=== PATIENT | female | born 1935 | race Caucasian/White ===

== ENCOUNTER → 2016-04-19 | Outpatient (CLI) | payer OTHER ==
[~2016-04-19] MED LIST: AMLO-25 OR; LEVO100T83 OR; LEVOTHYROXINE; METFORMIN; METO-159 OR; ZANTAC
[2016-04-19 08:42] LABS: Basophils # (auto) 0 uL; Basophils % (auto) 0.2 % (0.0-2.0); Eosinophils # (auto) 0 uL; Eosinophils % (auto) 0.1 % (0.0-7.0); Hematocrit 36.5 % (36.0-46.0); Hemoglobin 11.7 g/dL (12.2-16.2); Lymphocytes # (auto) 1.5 uL; Lymphocytes % (auto) 11.6 % (10.0-50.0); Mean Corpuscular Hemoglobin 27.8 pg (28.0-32.0); Mean Corpuscular Hgb Conc. 32.2 g/dL (32.0-36.0); Mean Corpuscular Volume 86.6 fL (80.0-100.0); Mean Platelet Volume 8.7 fL (7.4-10.4); Monocytes # (auto) 0.7 uL; Neutrophils # (auto) 10.9 uL; Neutrophils % (auto) 83.1 % (37.0-80.0); Platelet Count (auto) 419 10^3/uL (140-450); Red Cell Distribution Width 13.3 % (11.6-16.0); White Blood Cell 13.1 10^3/uL (4.4-10.8)
[2016-04-19 09:04] LABS: Albumin 3.5 g/dL (3.4-5.0); BUN/Creatinine Ratio 34.5; Bilirubin, Total 0.4 mg/dL (0.2-1.0); Calcium 8.7 mg/dL (8.5-10.1); Potassium 4.5 mmol/L (3.5-5.1); Total Protein 7.4 g/dL (6.4-8.2)
[2016-04-19 09:42] LABS: Urine Bilirubin Negative (Negative); Urine Blood Negative /uL (Negative); Urine Color Yellow (Yellow); Urine Ketone Negative (Negative); Urine Nitrite Negative (Negative); Urine RBC 1 /hpf (0 - 4); Urine Squamous Epithelial Cell FEW /hpf (<5); Urine Urobilinogen Normal (Negative); Urine pH 5.5 (5.0-8.0)
[2016-04-19 09:51] LABS: Urine Glucose 3+ mg/dL (Normal)
== END | disposition home or self-care (01) ==
LOC: LAB 06:51
DX: N18.3 Chronic kidney disease, stage 3 (moderate) (principal); E11.21 Type 2 diabetes mellitus with diabetic nephropathy
CPT/HCPCS: 36415; 80053; 80061; 81001; 82043; 83036; 83970; 84443; 85025

== ENCOUNTER 2016-07-06 08:35 | Inpatient (IN) | payer OTHER ==
[~2016-07-06] VITALS: Ht 160 cm; Wt 88.5 kg
[2016-07-06] MEDS ORDERED: DILTIAZEM HCL 25 MG/5 ML VIAL IV ONE (09:00)
[2016-07-06] MEDS ORDERED: SODIUM CHLORIDE 0.9% 1,000 ML IV ONE ×4 (09:06→14:15)
[2016-07-06 09:13] LABS: Hematocrit 34.7 % (36.0-46.0); Hemoglobin 11.4 g/dL (12.2-16.2); Mean Corpuscular Hgb Conc. 32.9 g/dL (32.0-36.0); Mean Corpuscular Volume 88.2 fL (80.0-100.0); Mean Platelet Volume 9.7 fL (7.4-10.4); Platelet Count (auto) 426 10^3/uL (140-450); Red Cell Distribution Width 15.1 % (11.6-16.0); SUSPECT VIEW TRANSMISSION; White Blood Cell 24.7 10^3/uL (4.4-10.8)
[2016-07-06 09:24] LABS: Metamyelocytes % 0; Myelocytes % 0; Promyelocytes % 0; Reactive Lymphocytes 0
[2016-07-06] MEDS ORDERED: FUROSEMIDE 40 MG/4 ML VIAL IV ONE ×2 (09:30)
[2016-07-06 09:41] LABS: BUN/Creatinine Ratio 41.4; Bilirubin, Total 0.7 mg/dL (0.2-1.0); Calcium 9.6 mg/dL (8.5-10.1); Magnesium 3.8 mg/dL (1.6-2.6); Partial Thromboplastin Time 27.8 sec (22.64-33.71); Potassium 5.3 mmol/L (3.5-5.1); Prothrombin Time 10.8 sec (9.37-12.3); Total Protein 7.3 g/dL (6.4-8.2)
[2016-07-06] MEDS ORDERED: PIPERACILLIN-TAZOB 3.375GM 100 ML IV ONE (10:15)
[2016-07-06 10:49] LABS: Temperature: 23.3 C (20.0-25.0)
[2016-07-06 10:50] LABS: Albumin 1.6 g/dL (3.4-5.0)
[2016-07-06 10:54] LABS: Urine Bilirubin Negative (Negative); Urine Blood Negative /uL (Negative); Urine Color Yellow (Yellow); Urine Mucus FEW (None Seen); Urine Nitrite Negative (Negative); Urine RBC 1 /hpf (0 - 4); Urine Squamous Epithelial Cell FEW /hpf (<5); Urine Urobilinogen Normal (Negative)
[2016-07-06 10:55] LABS: Urine Glucose 4+ mg/dL (Normal); Urine Ketone 1+ (Negative)
[2016-07-06 11:17] LABS: REFLEX LACTIC ACID YES OR NO YES
[2016-07-06 11:25] LABS: Platelet Estimate Adequate
[2016-07-06] MEDS ORDERED: InsuLIN R (HUMAN) 100 UNITS in SODIUM CHL 0.9% 99 ML IV SCH (12:10)
[2016-07-06] MEDS ORDERED: DEXTROSE (50%) 50ML SYRG IV PRN (12:15)
[2016-07-06] MEDS ORDERED: AMIODARONE HCL 150 MG in D5W 5% 100 ML IV ONE (12:15)
[2016-07-06] MEDS ORDERED: InsuLIN REG 1unit/0.01ml Soln (100units/ml) IV ONE (12:15)
[2016-07-06] MEDS ORDERED: AMIODARONE HCL 900 MG in DEXTROSE 500 ML IV SCH ×3 (12:30→18:30)
[2016-07-06] MEDS ORDERED: LINEZOLID 600MG/300ML 300 ML IV ONE (13:00)
[2016-07-06] MEDS ORDERED: ALBUTEROL SULF 2.5 MG/0.5ML(0.5%) NEB SOLN NEB PRN (13:00)
[2016-07-06] MEDS ORDERED: LORazepam 0.5 MG TAB PO PRN (13:00)
[2016-07-06] MEDS ORDERED: SODIUM CHLORIDE 0.9% 250 ML IV ONE (13:00)
[2016-07-06] MEDS ORDERED: PROMETHAZINE HCL 25 MG/ML 1ML IV PRN (13:00)
[2016-07-06] MEDS ORDERED: TEMAZEPAM 15 MG CAP PO PRN (13:00)
[2016-07-06] MEDS ORDERED: NITROGLYCERIN 0.4 MG SL TAB SL PRN (13:00)
[2016-07-06] MEDS ORDERED: HYDROcodone-ACET 5/325MG TAB PO PRN (13:00)
[2016-07-06] MEDS ORDERED: MORPHINE SULF INJ 2 MG/ML SYRINGE 1ML IV PRN ×2 (13:00)
[2016-07-06] MEDS ORDERED: SODIUM CHLORIDE 0.9% 1,000 ML IV SCH (13:15)
[2016-07-06] MEDS: InsuLIN R (HUMAN) 100 UNITS in SODIUM CHL 0.9% 99 ML IV SCH (13:25)
[2016-07-06] MEDS ORDERED: MIDAZOLAM DRIP 100 mg/100mL NS 100 ML IV ONE (13:26)
[2016-07-06] MEDS ORDERED: MIDAZOLAM HCL 5 MG/ML-1ML VIAL IV ONE (13:30)
[2016-07-06] MEDS ORDERED: ENOXAPARIN SOD 30 MG/0.3 ML SYRINGE SC ONE (13:30)
[2016-07-06 13:32] LABS: Lactic Acid w/Reflex 4.7 mmol/L (0.4-2.0)
[2016-07-06 13:35] LABS: REFLEX LACTIC ACID YES OR NO NO
[2016-07-06] MEDS: ACCU-CHEK COMFORT CURVE STRIP VI SCH ×11 (13:42→23:16)
[2016-07-06] MEDS: MIDAZOLAM DRIP 100 mg/100mL NS 100 ML IV SCH ×3 (13:43→22:51)
[2016-07-06] MEDS: OSELTAMIVIR 75 MG CAP PO ONE ×2 (13:55→14:55)
[2016-07-06] MEDS: SODIUM CHLORIDE 0.9% 1,000 ML IV SCH ×2 (14:40→21:54)
[2016-07-06] MEDS ORDERED: AZITHROMYCIN 500MG/D5W 250ML 250 ML IV ONE (15:00)
[2016-07-06] MEDS: PROPOFOL 100 ML IV SCH ×5 (15:28→22:03)
[2016-07-06] MEDS ORDERED: PROPOFOL 10 MG/ML 20 ML IV ONE (15:30)
[2016-07-06] MEDS ORDERED: LORazepam 2MG/ML-1ML VIAL IV ONE (15:45)
[2016-07-06] MEDS: PIPERACILLIN-TAZOB 2.25GM 50 ML IV SCH ×2 (17:39→23:57)
[2016-07-06] MEDS ORDERED: NOREPINEPHRINE BITARTRATE 250 ML IV ONE (18:32)
[2016-07-06] MEDS: NOREPINEPHRINE BITARTRATE 250 ML IV SCH (18:50)
[2016-07-06] MEDS: ALBUTEROL SULF 2.5 MG/0.5ML(0.5%) NEB SOLN NEB SCH (18:58)
[2016-07-06 18:59] VITALS: BP 159/77
[2016-07-06] MEDS: IPRATROPIUM BROM 0.5 MG/2.5ML INH SOL NEB SCH (18:59)
[2016-07-06 20:12] VITALS: BP 129/69
[2016-07-06] MEDS: AMIODARONE HCL 900 MG in DEXTROSE 500 ML IV SCH (21:29)
[2016-07-06] MEDS: LINEZOLID 600MG/300ML 300 ML IV SCH (21:54)
[2016-07-06] MEDS ORDERED: OSELTAMIVIR 75 MG CAP PO SCH (22:00)
[2016-07-06 22:20] VITALS: BP 113/53
[2016-07-07] VITALS (13 sets, daily range): BP systolic 100–138; BP diastolic 49–65
[2016-07-07] MEDS: ACCU-CHEK COMFORT CURVE STRIP VI SCH ×24 (00:10→23:00)
[2016-07-07] MEDS: SODIUM CHLORIDE 0.9% 1,000 ML IV SCH ×4 (02:37→22:48)
[2016-07-07] MEDS: MIDAZOLAM DRIP 100 mg/100mL NS 100 ML IV SCH (02:48)
[2016-07-07] MEDS: PROPOFOL 100 ML IV SCH ×2 (03:06→04:35)
[2016-07-07 04:09] LABS: Hematocrit 28.5 % (36.0-46.0); Hemoglobin 9.5 g/dL (12.2-16.2); Mean Corpuscular Hgb Conc. 33.4 g/dL (32.0-36.0); Mean Platelet Volume 9.3 fL (7.4-10.4); Platelet Count (auto) 313 10^3/uL (140-450); Red Cell Distribution Width 14.9 % (11.6-16.0); SUSPECT VIEW TRANSMISSION; White Blood Cell 20.3 10^3/uL (4.4-10.8)
[2016-07-07 04:18] LABS: Metamyelocytes % 0; Myelocytes % 0; Promyelocytes % 0; Reactive Lymphocytes 0
[2016-07-07] MEDS: InsuLIN R (HUMAN) 100 UNITS in SODIUM CHL 0.9% 99 ML IV SCH ×2 (04:24→06:37)
[2016-07-07 04:42] LABS: BUN/Creatinine Ratio 33.2; Bilirubin, Total 0.5 mg/dL (0.2-1.0); Calcium 7.9 mg/dL (8.5-10.1); Potassium 4.2 mmol/L (3.5-5.1); Total Protein 6.2 g/dL (6.4-8.2)
[2016-07-07] MEDS: PIPERACILLIN-TAZOB 2.25GM 50 ML IV SCH ×3 (06:49→18:13)
[2016-07-07 06:58] LABS: Platelet Estimate Adequate; RBC Morphology Normal
[2016-07-07 07:21] LABS: Albumin 1.2 g/dL (3.4-5.0)
[2016-07-07] MEDS: ALBUTEROL SULF 2.5 MG/0.5ML(0.5%) NEB SOLN NEB SCH ×4 (07:38→17:45)
[2016-07-07] MEDS: IPRATROPIUM BROM 0.5 MG/2.5ML INH SOL NEB SCH ×4 (07:38→17:45)
[2016-07-07] MEDS: LINEZOLID 600MG/300ML 300 ML IV SCH ×2 (09:19→21:19)
[2016-07-07] MEDS ORDERED: AZITHROMYCIN 500MG/D5W 250ML 250 ML IV SCH (10:00)
[2016-07-07] MEDS ORDERED: ENOXAPARIN SOD 40 MG/0.4 ML SYRINGE SC SCH (10:00)
[2016-07-07] MEDS ORDERED: ENOXAPARIN SOD 30 MG/0.3 ML SYRINGE SC SCH (10:00)
[2016-07-07] MEDS: OSELTAMIVIR 30 MG CAP PO SCH (10:00)
[2016-07-07] MEDS ORDERED: DIGOXIN (250MCG/ML) 2 ML AMPULE IV ONE (16:30)
[2016-07-07 17:35] LABS: Hematocrit 28.2 % (36.0-46.0); Hemoglobin 9.4 g/dL (12.2-16.2); Mean Corpuscular Hemoglobin 28.6 pg (28.0-32.0); Mean Corpuscular Hgb Conc. 33.1 g/dL (32.0-36.0); Mean Corpuscular Volume 86.5 fL (80.0-100.0); Mean Platelet Volume 9.1 fL (7.4-10.4); Platelet Count (auto) 325 10^3/uL (140-450); Red Cell Distribution Width 14.9 % (11.6-16.0); SUSPECT VIEW TRANSMISSION
[2016-07-07 17:39] LABS: Metamyelocytes % 0; Myelocytes % 0; Promyelocytes % 0; Reactive Lymphocytes 0
[2016-07-07] MEDS ORDERED: SODIUM CHLORIDE 0.9% 1,000 ML IV ONE (18:00)
[2016-07-07 18:08] LABS: Calcium 7.8 mg/dL (8.5-10.1); Potassium 3.8 mmol/L (3.5-5.1)
[2016-07-07] MEDS: NOREPINEPHRINE BITARTRATE 250 ML IV SCH (18:51)
[2016-07-07 19:13] LABS: Platelet Estimate Adequate
[2016-07-07] MEDS: APIXABAN 2.5 MG TAB PO SCH (22:04)
[2016-07-07] MEDS: AMIODARONE HCL 900 MG in DEXTROSE 500 ML IV SCH (22:47)
[2016-07-08] VITALS (76 sets, daily range): BP systolic 90–145; BP diastolic 33–63
[2016-07-08] MEDS: PIPERACILLIN-TAZOB 2.25GM 50 ML IV SCH ×2 (00:05→06:00)
[2016-07-08] MEDS: ACCU-CHEK COMFORT CURVE STRIP VI SCH ×24 (00:05→23:00)
[2016-07-08] MEDS: SODIUM CHLORIDE 0.9% 1,000 ML IV SCH ×4 (06:06→21:45)
[2016-07-08] MEDS: ALBUTEROL SULF 2.5 MG/0.5ML(0.5%) NEB SOLN NEB SCH ×3 (06:20→18:40)
[2016-07-08] MEDS: IPRATROPIUM BROM 0.5 MG/2.5ML INH SOL NEB SCH ×3 (06:20→18:40)
[2016-07-08 06:31] LABS: Hematocrit 28.5 % (36.0-46.0); Hemoglobin 9.7 g/dL (12.2-16.2); Mean Corpuscular Volume 85.4 fL (80.0-100.0); Mean Platelet Volume 8.9 fL (7.4-10.4); Platelet Count (auto) 275 10^3/uL (140-450); Red Cell Distribution Width 14.5 % (11.6-16.0); SUSPECT VIEW TRANSMISSION; White Blood Cell 15.8 10^3/uL (4.4-10.8)
[2016-07-08 06:36] LABS: Metamyelocytes % 0; Myelocytes % 0; Promyelocytes % 0; Reactive Lymphocytes 0
[2016-07-08 07:53] LABS: BUN/Creatinine Ratio 27.8; Bilirubin, Total 0.5 mg/dL (0.2-1.0); Calcium 7.6 mg/dL (8.5-10.1); Potassium 4.1 mmol/L (3.5-5.1); Total Protein 5.6 g/dL (6.4-8.2)
[2016-07-08] MEDS: LINEZOLID 600MG/300ML 300 ML IV SCH ×2 (08:53→21:24)
[2016-07-08] MEDS: PROPOFOL 100 ML IV SCH ×3 (08:56→18:58)
[2016-07-08] MEDS ORDERED: InsuLIN R (HUMAN) 100 UNITS in SODIUM CHL 0.9% 99 ML IV SCH ×5 (09:45→13:38)
[2016-07-08] MEDS: APIXABAN 2.5 MG TAB PO SCH ×2 (09:57→21:26)
[2016-07-08] MEDS: OSELTAMIVIR 30 MG CAP PO SCH (09:57)
[2016-07-08] MEDS: MIDAZOLAM DRIP 100 mg/100mL NS 100 ML IV SCH ×2 (13:06→16:26)
[2016-07-08 14:08] LABS: Platelet Estimate Adequate
[2016-07-08] MEDS: AMIODARONE HCL 900 MG in DEXTROSE 500 ML IV SCH (15:14)
[2016-07-08] MEDS: InsuLIN R (HUMAN) 100 UNITS in SODIUM CHL 0.9% 99 ML IV SCH ×2 (15:23→19:33)
[2016-07-08] MEDS: FREE WATER NG SCH (17:53)
[2016-07-08] MEDS: NOREPINEPHRINE BITARTRATE 250 ML IV SCH (18:45)
[2016-07-08] MEDS: INSULIN DETEMIR(LEVEMIR) 1unit/0.01ml Soln (100units/ml) SC SCH (21:30)
[2016-07-09] VITALS (107 sets, daily range): BP systolic 106–147; BP diastolic 40–74
[2016-07-09] MEDS: IPRATROPIUM BROM 0.5 MG/2.5ML INH SOL NEB SCH ×4 (00:15→18:13)
[2016-07-09] MEDS: ALBUTEROL SULF 2.5 MG/0.5ML(0.5%) NEB SOLN NEB SCH ×4 (00:15→18:14)
[2016-07-09] MEDS: ACCU-CHEK COMFORT CURVE STRIP VI SCH ×22 (01:14→23:04)
[2016-07-09] MEDS: InsuLIN R (HUMAN) 100 UNITS in SODIUM CHL 0.9% 99 ML IV SCH ×3 (02:56→08:03)
[2016-07-09 04:08] LABS: Hematocrit 25.9 % (36.0-46.0); Hemoglobin 8.7 g/dL (12.2-16.2); Mean Corpuscular Hemoglobin 29.4 pg (28.0-32.0); Mean Corpuscular Hgb Conc. 33.7 g/dL (32.0-36.0); Mean Corpuscular Volume 87.4 fL (80.0-100.0); Mean Platelet Volume 9.1 fL (7.4-10.4); Platelet Count (auto) 243 10^3/uL (140-450); Red Cell Distribution Width 14.8 % (11.6-16.0); SUSPECT VIEW TRANSMISSION; White Blood Cell 19.3 10^3/uL (4.4-10.8)
[2016-07-09 04:19] LABS: Metamyelocytes % 0; Myelocytes % 0; Promyelocytes % 0; Reactive Lymphocytes 0
[2016-07-09 04:26] LABS: Platelet Estimate Adequate
[2016-07-09 04:36] LABS: BUN/Creatinine Ratio 26.7; Calcium 7.5 mg/dL (8.5-10.1)
[2016-07-09] MEDS: FREE WATER NG SCH ×4 (05:55→22:08)
[2016-07-09] MEDS: INSULIN DETEMIR(LEVEMIR) 1unit/0.01ml Soln (100units/ml) SC SCH ×2 (07:10→22:00)
[2016-07-09] MEDS: SODIUM CHLORIDE 0.9% 1,000 ML IV SCH (07:16)
[2016-07-09] MEDS: LINEZOLID 600MG/300ML 300 ML IV SCH ×2 (08:55→21:24)
[2016-07-09] MEDS: OSELTAMIVIR 30 MG CAP PO SCH (10:05)
[2016-07-09] MEDS: APIXABAN 2.5 MG TAB PO SCH ×2 (10:05→22:00)
[2016-07-09] MEDS ORDERED: SODIUM BICARBONATE 50ML VIAL 50 ML in SOD CHL 0.45% 1,000 ML IV SCH (10:45)
[2016-07-09] MEDS: SODIUM BICARBONATE 50ML VIAL 50 ML in SOD CHL 0.45% 1,000 ML IV SCH ×2 (11:18→22:01)
[2016-07-09] MEDS: BUMETANIDE (0.25MG/ML) 4 ML VIAL IV SCH (12:47)
[2016-07-09] MEDS: PROPOFOL 100 ML IV SCH ×2 (13:38→22:14)
[2016-07-09] MEDS: NOREPINEPHRINE BITARTRATE 250 ML IV SCH (18:45)
[2016-07-09] MEDS: DEXTROSE (50%) 50ML SYRG IV PRN (21:10)
[2016-07-09] MEDS: AMIODARONE HCL 900 MG in DEXTROSE 500 ML IV SCH (23:08)
[2016-07-10] VITALS (108 sets, daily range): BP systolic 108–154; BP diastolic 43–79
[2016-07-10] MEDS: ACCU-CHEK COMFORT CURVE STRIP VI SCH ×14 (00:08→20:00)
[2016-07-10] MEDS: IPRATROPIUM BROM 0.5 MG/2.5ML INH SOL NEB SCH ×4 (00:15→18:47)
[2016-07-10] MEDS: ALBUTEROL SULF 2.5 MG/0.5ML(0.5%) NEB SOLN NEB SCH ×4 (00:15→18:47)
[2016-07-10 04:27] LABS: Hematocrit 25.7 % (36.0-46.0); Hemoglobin 8.7 g/dL (12.2-16.2); Mean Corpuscular Hemoglobin 29.1 pg (28.0-32.0); Mean Corpuscular Hgb Conc. 33.7 g/dL (32.0-36.0); Mean Corpuscular Volume 86.4 fL (80.0-100.0); Mean Platelet Volume 9.1 fL (7.4-10.4); Platelet Count (auto) 206 10^3/uL (140-450); Red Cell Distribution Width 15.1 % (11.6-16.0); SUSPECT VIEW TRANSMISSION; White Blood Cell 16.8 10^3/uL (4.4-10.8)
[2016-07-10 04:42] LABS: Potassium 3.8 mmol/L (3.5-5.1)
[2016-07-10 04:46] LABS: Albumin 0.9 g/dL (3.4-5.0); BUN/Creatinine Ratio 25.4; Calcium 7.4 mg/dL (8.5-10.1)
[2016-07-10 04:49] LABS: Bilirubin, Total 0.4 mg/dL (0.2-1.0); Total Protein 5.1 g/dL (6.4-8.2)
[2016-07-10 04:51] LABS: Metamyelocytes % 0; Myelocytes % 0; Promyelocytes % 0; Reactive Lymphocytes 0
[2016-07-10] MEDS: DEXTROSE (50%) 50ML SYRG IV PRN ×2 (05:25→18:52)
[2016-07-10] MEDS: INSULIN DETEMIR(LEVEMIR) 1unit/0.01ml Soln (100units/ml) SC SCH ×2 (06:02→22:00)
[2016-07-10] MEDS: FREE WATER NG SCH ×3 (06:02→22:00)
[2016-07-10] MEDS: PROPOFOL 100 ML IV SCH (06:08)
[2016-07-10] MEDS: BUMETANIDE (0.25MG/ML) 4 ML VIAL IV SCH (06:18)
[2016-07-10 06:51] LABS: Platelet Estimate Adequate
[2016-07-10] MEDS ORDERED: CYCL5TAB PO (07:41)
[2016-07-10] MEDS ORDERED: AMLO-25 PO (07:41)
[2016-07-10] MEDS ORDERED: SITA50TA PO (07:41)
[2016-07-10] MEDS ORDERED: METO-291 PO (07:41)
[2016-07-10] MEDS ORDERED: LORA-653 PO (07:41)
[2016-07-10] MEDS ORDERED: NOR5T PO (07:41)
[2016-07-10] MEDS ORDERED: LEVO100T8 PO (07:41)
[2016-07-10] MEDS ORDERED: GABA300C8 PO (07:41)
[2016-07-10] MEDS ORDERED: ALLO100T PO (07:41)
[2016-07-10] MEDS ORDERED: PRE1T GT (07:41)
[2016-07-10] MEDS ORDERED: ATOR10TA52 PO (07:41)
[2016-07-10] MEDS ORDERED: GLIM4TAB42 PO (07:41)
[2016-07-10] MEDS ORDERED: METO2.5T11 PO (07:42)
[2016-07-10] MEDS: SODIUM BICARBONATE 50ML VIAL 50 ML in SOD CHL 0.45% 1,000 ML IV SCH (08:15)
[2016-07-10] MEDS: LINEZOLID 600MG/300ML 300 ML IV SCH ×2 (09:18→21:04)
[2016-07-10] MEDS: APIXABAN 2.5 MG TAB PO SCH ×2 (10:00→22:00)
[2016-07-10] MEDS: OSELTAMIVIR 30 MG CAP PO SCH (10:00)
[2016-07-10] MEDS ORDERED: LIDOCAINE 1% HCL (LOCAL ANESTH.) INJ 20ML MDV ID ONE (13:30)
[2016-07-10] MEDS ORDERED: GASTROGRAFIN 30 ML SOL ONE (13:52)
[2016-07-10] MEDS ORDERED: LORazepam 2MG/ML-1ML VIAL ONE (18:58)
[2016-07-10] MEDS ORDERED: LORazepam 2MG/ML-1ML VIAL IV PRN (19:00)
[2016-07-10] MEDS: SODIUM CHLOR 0.9% PF (SALINE LOCK) 10ML VIAL IV SCH (22:00)
[2016-07-11] VITALS (66 sets, daily range): BP systolic 112–149; BP diastolic 46–68
[2016-07-11] MEDS: IPRATROPIUM BROM 0.5 MG/2.5ML INH SOL NEB SCH ×4 (00:16→18:25)
[2016-07-11] MEDS: ALBUTEROL SULF 2.5 MG/0.5ML(0.5%) NEB SOLN NEB SCH ×4 (00:16→18:25)
[2016-07-11] MEDS: ACCU-CHEK COMFORT CURVE STRIP VI SCH ×7 (00:24→23:52)
[2016-07-11 03:40] LABS: Hematocrit 26.2 % (36.0-46.0); Hemoglobin 8.8 g/dL (12.2-16.2); Mean Corpuscular Hemoglobin 28.8 pg (28.0-32.0); Mean Corpuscular Hgb Conc. 33.5 g/dL (32.0-36.0); Mean Platelet Volume 8.7 fL (7.4-10.4); Platelet Count (auto) 197 10^3/uL (140-450); Red Cell Distribution Width 14.4 % (11.6-16.0); SUSPECT VIEW TRANSMISSION; White Blood Cell 14.3 10^3/uL (4.4-10.8)
[2016-07-11 03:56] LABS: Metamyelocytes % 0; Myelocytes % 0; Promyelocytes % 0; Reactive Lymphocytes 0
[2016-07-11 04:05] LABS: BUN/Creatinine Ratio 25.8; Bilirubin, Total 0.5 mg/dL (0.2-1.0); Calcium 7.4 mg/dL (8.5-10.1); Potassium 3.9 mmol/L (3.5-5.1); Total Protein 5.6 g/dL (6.4-8.2)
[2016-07-11] MEDS: FREE WATER NG SCH ×3 (06:00→22:00)
[2016-07-11 06:43] LABS: Platelet Estimate Adequate
[2016-07-11] MEDS: INSULIN DETEMIR(LEVEMIR) 1unit/0.01ml Soln (100units/ml) SC SCH ×2 (07:00→22:00)
[2016-07-11] MEDS: DEXTROSE (50%) 50ML SYRG IV PRN ×2 (07:06→17:50)
[2016-07-11] MEDS: BUMETANIDE (0.25MG/ML) 4 ML VIAL IV SCH ×2 (07:06→23:06)
[2016-07-11 07:09] LABS: Lactic Acid w/Reflex 2.3 mmol/L (0.4-2.0)
[2016-07-11 07:41] LABS: REFLEX LACTIC ACID YES OR NO YES
[2016-07-11] MEDS: LINEZOLID 600MG/300ML 300 ML IV SCH ×2 (08:34→21:09)
[2016-07-11] MEDS: SODIUM CHLOR 0.9% PF (SALINE LOCK) 10ML VIAL IV SCH ×2 (10:00→22:00)
[2016-07-11] MEDS: APIXABAN 2.5 MG TAB PO SCH ×2 (10:46→22:00)
[2016-07-11] MEDS: METOCLOPRAMIDE HCL 5MG/ml INJ 2ml VIAL IV ONE (12:45)
[2016-07-11 15:32] LABS: Lactic Acid w/Reflex 2.9 mmol/L (0.4-2.0)
[2016-07-11 16:16] LABS: REFLEX LACTIC ACID YES OR NO YES
[2016-07-11] MEDS: ALBUMIN 25% 100 ML IV SCH (22:00)
[2016-07-12] VITALS (56 sets, daily range): BP systolic 122–173; BP diastolic 48–79
[2016-07-12] MEDS: ACETAMINOPHEN 500 MG TAB PO PRN (00:13)
[2016-07-12] MEDS: ALBUTEROL SULF 2.5 MG/0.5ML(0.5%) NEB SOLN NEB SCH ×4 (00:17→18:30)
[2016-07-12] MEDS: IPRATROPIUM BROM 0.5 MG/2.5ML INH SOL NEB SCH ×4 (00:17→18:30)
[2016-07-12] MEDS ORDERED: MORPHINE SULF INJ 2 MG/ML SYRINGE 1ML IV PRN (00:30)
[2016-07-12] MEDS: ACCU-CHEK COMFORT CURVE STRIP VI SCH ×4 (03:25→18:00)
[2016-07-12] MEDS: INSULIN DETEMIR(LEVEMIR) 1unit/0.01ml Soln (100units/ml) SC SCH ×2 (03:35→22:14)
[2016-07-12 03:45] LABS: Basophils # (auto) 0 uL; DEFINITIVE VIEW TRANSMISSION; Eosinophils # (auto) 0 uL; Eosinophils % (auto) 0.3 % (0.0-7.0); Hematocrit 22.4 % (36.0-46.0); Lymphocytes # (auto) 0.4 uL; Lymphocytes % (auto) 3.6 % (10.0-50.0); Mean Corpuscular Hemoglobin 30.8 pg (28.0-32.0); Mean Corpuscular Hgb Conc. 35.6 g/dL (32.0-36.0); Mean Corpuscular Volume 86.6 fL (80.0-100.0); Mean Platelet Volume 8.4 fL (7.4-10.4); Monocytes # (auto) 0.4 uL; Monocytes % (auto) 4.2 % (0.0-12.0); Neutrophils # (auto) 9.4 uL; Neutrophils % (auto) 91.9 % (37.0-80.0); Platelet Count (auto) 149 10^3/uL (140-450); Red Cell Distribution Width 14.5 % (11.6-16.0); White Blood Cell 10.2 10^3/uL (4.4-10.8)
[2016-07-12 03:57] LABS: Albumin 1.6 g/dL (3.4-5.0); BUN/Creatinine Ratio 25.9; Calcium 7.6 mg/dL (8.5-10.1); Potassium 3.7 mmol/L (3.5-5.1)
[2016-07-12 03:59] LABS: Bilirubin, Total 0.5 mg/dL (0.2-1.0); Total Protein 5.4 g/dL (6.4-8.2)
[2016-07-12] MEDS: FREE WATER NG SCH ×3 (05:37→22:12)
[2016-07-12] MEDS: APIXABAN 2.5 MG TAB PO SCH ×2 (08:55→22:12)
[2016-07-12] MEDS: ALBUMIN 25% 100 ML IV SCH ×2 (08:57→22:12)
[2016-07-12] MEDS: LINEZOLID 600MG/300ML 300 ML IV SCH ×2 (08:58→20:59)
[2016-07-12] MEDS: BUMETANIDE (0.25MG/ML) 4 ML VIAL IV SCH ×2 (08:59→23:12)
[2016-07-12] MEDS: SODIUM CHLOR 0.9% PF (SALINE LOCK) 10ML VIAL IV SCH ×2 (09:13→22:12)
[2016-07-12] MEDS: InsuLIN REG 1unit/0.01ml Soln (100units/ml) SC SCH ×2 (12:00→18:00)
[2016-07-12] MEDS: POTASSIUM CHL 20MEQ/100ML 100 ML IV SCH ×2 (14:15→16:00)
[2016-07-13] VITALS (43 sets, daily range): BP systolic 132–179; BP diastolic 48–78
[2016-07-13] MEDS: IPRATROPIUM BROM 0.5 MG/2.5ML INH SOL NEB SCH ×5 (00:01→23:58)
[2016-07-13] MEDS: ALBUTEROL SULF 2.5 MG/0.5ML(0.5%) NEB SOLN NEB SCH ×5 (00:01→23:58)
[2016-07-13] MEDS: InsuLIN REG 1unit/0.01ml Soln (100units/ml) SC SCH ×4 (00:45→17:40)
[2016-07-13] MEDS: ACETAMINOPHEN 500 MG TAB PO PRN (01:00)
[2016-07-13 03:53] LABS: Basophils # (auto) 0 uL; DEFINITIVE VIEW TRANSMISSION; Eosinophils # (auto) 0 uL; Eosinophils % (auto) 0.3 % (0.0-7.0); Hematocrit 16.3 % (36.0-46.0); Lymphocytes # (auto) 0.6 uL; Lymphocytes % (auto) 4.7 % (10.0-50.0); Mean Corpuscular Hemoglobin 29.7 pg (28.0-32.0); Mean Corpuscular Hgb Conc. 34.3 g/dL (32.0-36.0); Mean Corpuscular Volume 86.4 fL (80.0-100.0); Monocytes # (auto) 0.5 uL; Monocytes % (auto) 3.5 % (0.0-12.0); Neutrophils # (auto) 12.1 uL; Neutrophils % (auto) 91.5 % (37.0-80.0); Platelet Count (auto) 140 10^3/uL (140-450); Red Cell Distribution Width 14.4 % (11.6-16.0); White Blood Cell 13.2 10^3/uL (4.4-10.8)
[2016-07-13 04:25] LABS: BUN/Creatinine Ratio 29.2; Calcium 8.1 mg/dL (8.5-10.1); Potassium 3.7 mmol/L (3.5-5.1)
[2016-07-13 04:35] LABS: Hemoglobin 5.6 g/dL (12.2-16.2)
[2016-07-13 05:29] LABS: Basophils # (auto) 0 uL; DEFINITIVE VIEW TRANSMISSION; Eosinophils # (auto) 0 uL; Eosinophils % (auto) 0.3 % (0.0-7.0); Hematocrit 19.7 % (36.0-46.0); Lymphocytes # (auto) 0.6 uL; Lymphocytes % (auto) 4.9 % (10.0-50.0); Mean Corpuscular Hemoglobin 29.5 pg (28.0-32.0); Mean Corpuscular Hgb Conc. 34.7 g/dL (32.0-36.0); Mean Corpuscular Volume 85.1 fL (80.0-100.0); Mean Platelet Volume 7.7 fL (7.4-10.4); Monocytes # (auto) 0.5 uL; Monocytes % (auto) 4.3 % (0.0-12.0); Neutrophils # (auto) 11.4 uL; Neutrophils % (auto) 90.5 % (37.0-80.0); Platelet Count (auto) 131 10^3/uL (140-450); Red Cell Distribution Width 14.3 % (11.6-16.0); White Blood Cell 12.6 10^3/uL (4.4-10.8)
[2016-07-13 05:55] LABS: Hemoglobin 6.8 g/dL (12.2-16.2)
[2016-07-13 05:59] LABS: Albumin 2.3 g/dL (3.4-5.0); Bilirubin, Total 0.5 mg/dL (0.2-1.0); Calcium 8.2 mg/dL (8.5-10.1); Potassium 3.7 mmol/L (3.5-5.1); Total Protein 6.2 g/dL (6.4-8.2)
[2016-07-13] MEDS: FREE WATER NG SCH ×3 (06:26→22:18)
[2016-07-13] MEDS: ACCU-CHEK COMFORT CURVE STRIP VI SCH ×4 (06:26→17:40)
[2016-07-13] MEDS: INSULIN DETEMIR(LEVEMIR) 1unit/0.01ml Soln (100units/ml) SC SCH ×2 (07:34→22:00)
[2016-07-13] MEDS: LINEZOLID 600MG/300ML 300 ML IV SCH ×2 (08:05→21:30)
[2016-07-13] MEDS: APIXABAN 2.5 MG TAB PO SCH (10:11)
[2016-07-13] MEDS: BUMETANIDE (0.25MG/ML) 4 ML VIAL IV SCH ×2 (10:11→22:18)
[2016-07-13] MEDS: ALBUMIN 25% 100 ML IV SCH ×2 (10:12→22:18)
[2016-07-13] MEDS: SODIUM CHLOR 0.9% PF (SALINE LOCK) 10ML VIAL IV SCH ×2 (10:12→22:18)
[2016-07-13] MEDS: SODIUM CHLORIDE 0.9% 1,000 ML IV SCH (15:45)
[2016-07-13 19:09] LABS: Hematocrit 27.3 % (36.0-46.0); Hemoglobin 9.3 g/dL (12.2-16.2)
[2016-07-13] MEDS: PANTOPRAZOLE SODIUM 40 MG/10 ML VIAL IV SCH (22:18)
[2016-07-14] VITALS (36 sets, daily range): BP systolic 132–185; BP diastolic 47–111
[2016-07-14] MEDS: SODIUM CHLORIDE 0.9% 1,000 ML IV SCH ×2 (00:55→17:25)
[2016-07-14 03:58] LABS: Hematocrit 28.3 % (36.0-46.0); Hemoglobin 9.5 g/dL (12.2-16.2); Mean Corpuscular Hemoglobin 29.1 pg (28.0-32.0); Mean Corpuscular Hgb Conc. 33.6 g/dL (32.0-36.0); Mean Corpuscular Volume 86.7 fL (80.0-100.0); Mean Platelet Volume 7.9 fL (7.4-10.4); Platelet Count (auto) 116 10^3/uL (140-450); Red Cell Distribution Width 14.4 % (11.6-16.0); SUSPECT VIEW TRANSMISSION; White Blood Cell 13.4 10^3/uL (4.4-10.8)
[2016-07-14 04:26] LABS: Myelocytes % 0; Promyelocytes % 0; Reactive Lymphocytes 0
[2016-07-14 04:54] LABS: Albumin 2.9 g/dL (3.4-5.0); BUN/Creatinine Ratio 27.7; Bilirubin, Total 1.1 mg/dL (0.2-1.0); Calcium 8.6 mg/dL (8.5-10.1); Potassium 3.4 mmol/L (3.5-5.1); Total Protein 6.8 g/dL (6.4-8.2)
[2016-07-14 04:56] LABS: Metamyelocytes % 1
[2016-07-14 04:57] LABS: Hypersegmented Neutrophils Present; Platelet Estimate Decreased; RBC Morphology Normal
[2016-07-14] MEDS: IPRATROPIUM BROM 0.5 MG/2.5ML INH SOL NEB SCH ×4 (05:40→23:50)
[2016-07-14] MEDS: ALBUTEROL SULF 2.5 MG/0.5ML(0.5%) NEB SOLN NEB SCH ×4 (05:40→23:50)
[2016-07-14] MEDS: InsuLIN REG 1unit/0.01ml Soln (100units/ml) SC SCH ×4 (05:45→17:57)
[2016-07-14] MEDS: INSULIN DETEMIR(LEVEMIR) 1unit/0.01ml Soln (100units/ml) SC SCH ×2 (05:45→21:40)
[2016-07-14] MEDS: FREE WATER NG SCH ×3 (05:45→21:10)
[2016-07-14] MEDS: ACCU-CHEK COMFORT CURVE STRIP VI SCH ×4 (05:45→17:57)
[2016-07-14] MEDS: LINEZOLID 600MG/300ML 300 ML IV SCH ×2 (07:58→21:09)
[2016-07-14] MEDS: PANTOPRAZOLE SODIUM 40 MG/10 ML VIAL IV SCH ×2 (09:26→21:40)
[2016-07-14] MEDS: SODIUM CHLOR 0.9% PF (SALINE LOCK) 10ML VIAL IV SCH ×2 (09:27→21:40)
[2016-07-14] MEDS: BUMETANIDE (0.25MG/ML) 4 ML VIAL IV SCH (09:27)
[2016-07-14] MEDS: ALBUMIN 25% 100 ML IV SCH (09:27)
[2016-07-15] VITALS (33 sets, daily range): BP systolic 130–169; BP diastolic 52–73
[2016-07-15] MEDS: InsuLIN REG 1unit/0.01ml Soln (100units/ml) SC SCH ×4 (00:24→18:09)
[2016-07-15] MEDS: ACCU-CHEK COMFORT CURVE STRIP VI SCH ×4 (00:24→18:09)
[2016-07-15 03:52] LABS: Basophils # (auto) 0 uL; Eosinophils # (auto) 0 uL; Eosinophils % (auto) 0.4 % (0.0-7.0); Hemoglobin 9.1 g/dL (12.2-16.2); Lymphocytes # (auto) 0.5 uL; Lymphocytes % (auto) 5.6 % (10.0-50.0); Mean Corpuscular Hemoglobin 29.2 pg (28.0-32.0); Mean Corpuscular Hgb Conc. 33.7 g/dL (32.0-36.0); Mean Corpuscular Volume 86.9 fL (80.0-100.0); Mean Platelet Volume 8.1 fL (7.4-10.4); Monocytes # (auto) 0.3 uL; Monocytes % (auto) 3.1 % (0.0-12.0); Neutrophils # (auto) 8.5 uL; Neutrophils % (auto) 90.9 % (37.0-80.0); Platelet Count (auto) 108 10^3/uL (140-450); Red Cell Distribution Width 14.5 % (11.6-16.0); White Blood Cell 9.3 10^3/uL (4.4-10.8)
[2016-07-15 04:10] LABS: Calcium 8.3 mg/dL (8.5-10.1)
[2016-07-15 04:12] LABS: Potassium 2.8 mmol/L (3.5-5.1)
[2016-07-15] MEDS: FREE WATER NG SCH (05:49)
[2016-07-15] MEDS: POTASSIUM CHL 20MEQ/100ML 100 ML IV SCH ×2 (05:49→07:51)
[2016-07-15] MEDS: INSULIN DETEMIR(LEVEMIR) 1unit/0.01ml Soln (100units/ml) SC SCH ×2 (07:00→22:00)
[2016-07-15] MEDS: ALBUTEROL SULF 2.5 MG/0.5ML(0.5%) NEB SOLN NEB SCH ×3 (07:06→18:18)
[2016-07-15] MEDS: IPRATROPIUM BROM 0.5 MG/2.5ML INH SOL NEB SCH ×3 (07:06→18:18)
[2016-07-15] MEDS: SODIUM CHLORIDE 0.9% 1,000 ML IV SCH ×2 (07:51→20:05)
[2016-07-15] MEDS: LINEZOLID 600MG/300ML 300 ML IV SCH ×2 (08:25→21:29)
[2016-07-15] MEDS ORDERED: POTASSIUM CHL 20MEQ/100ML 100 ML IV SCH (09:45)
[2016-07-15] MEDS: SODIUM CHLOR 0.9% PF (SALINE LOCK) 10ML VIAL IV SCH ×2 (10:18→21:30)
[2016-07-15] MEDS: POTASSIUM CHL 10% (20 MEQ/15ML) ORAL SOLN GT SCH ×2 (10:18→14:00)
[2016-07-15] MEDS: PANTOPRAZOLE SODIUM 40 MG/10 ML VIAL IV SCH ×2 (10:18→21:30)
[2016-07-15 13:35] LABS: Vitamin D 25-Hydroxy 14 ng/mL (.); Vitamin D-2 25-Hydroxy <1.0 ng/mL (.)
[2016-07-16] VITALS (66 sets, daily range): BP systolic 108–169; BP diastolic 38–91
[2016-07-16] MEDS: IPRATROPIUM BROM 0.5 MG/2.5ML INH SOL NEB SCH ×4 (00:06→18:29)
[2016-07-16] MEDS: ACCU-CHEK COMFORT CURVE STRIP VI SCH ×4 (00:06→18:14)
[2016-07-16] MEDS: ALBUTEROL SULF 2.5 MG/0.5ML(0.5%) NEB SOLN NEB SCH ×4 (00:06→18:29)
[2016-07-16] MEDS: fentaNYL Drip 2500mCg/250mlNS 250 ML IV SCH ×2 (00:06→20:35)
[2016-07-16 04:27] LABS: Albumin 2.2 g/dL (3.4-5.0); BUN/Creatinine Ratio 30.2; Magnesium 1.7 mg/dL (1.6-2.6); Potassium 3.9 mmol/L (3.5-5.1)
[2016-07-16 04:31] LABS: Bilirubin, Total 0.5 mg/dL (0.2-1.0)
[2016-07-16 04:51] LABS: Basophils # (auto) 0 uL; Basophils % (auto) 0.1 % (0.0-2.0); Eosinophils # (auto) 0.1 uL; Eosinophils % (auto) 0.9 % (0.0-7.0); Hematocrit 25.5 % (36.0-46.0); Hemoglobin 8.6 g/dL (12.2-16.2); Lymphocytes # (auto) 0.5 uL; Lymphocytes % (auto) 8.4 % (10.0-50.0); Mean Corpuscular Hemoglobin 29.2 pg (28.0-32.0); Mean Corpuscular Hgb Conc. 33.6 g/dL (32.0-36.0); Mean Corpuscular Volume 86.9 fL (80.0-100.0); Mean Platelet Volume 8.4 fL (7.4-10.4); Monocytes # (auto) 0.3 uL; Monocytes % (auto) 4.3 % (0.0-12.0); Neutrophils # (auto) 5.5 uL; Neutrophils % (auto) 86.3 % (37.0-80.0); Platelet Count (auto) 96 10^3/uL (140-450); White Blood Cell 6.4 10^3/uL (4.4-10.8)
[2016-07-16] MEDS: SODIUM CHLORIDE 0.9% 1,000 ML IV SCH ×2 (05:13→18:15)
[2016-07-16] MEDS: InsuLIN REG 1unit/0.01ml Soln (100units/ml) SC SCH ×4 (06:00→18:00)
[2016-07-16] MEDS: INSULIN DETEMIR(LEVEMIR) 1unit/0.01ml Soln (100units/ml) SC SCH ×2 (06:25→22:00)
[2016-07-16] MEDS: LINEZOLID 600MG/300ML 300 ML IV SCH (09:00)
[2016-07-16] MEDS: PANTOPRAZOLE SODIUM 40 MG/10 ML VIAL IV SCH ×2 (09:55→21:59)
[2016-07-16] MEDS: SODIUM CHLOR 0.9% PF (SALINE LOCK) 10ML VIAL IV SCH ×2 (09:55→21:59)
[2016-07-16] MEDS ORDERED: ETOMIDATE (2MG/ML) 20ML VIAL IV ONE (12:27)
[2016-07-16] MEDS ORDERED: SUCCINYLCHOLINE CHLORIDE 20 MG/ML 10ML VIAL IV ONE (12:28)
[2016-07-16] MEDS: MIDAZOLAM DRIP 100 mg/100mL NS 100 ML IV SCH (12:54)
[2016-07-16] MEDS ORDERED: VANCOMYCIN PER PHARMACY 0 MG IV SCH (15:15)
[2016-07-16] MEDS: VANCOMYCIN 1GM/250ML D5W 250 ML IV SCH (17:00)
[2016-07-16] MEDS: cefTRIAXone 1GM/50ML D5W 50 ML IV SCH (17:41)
[2016-07-17] VITALS (98 sets, daily range): BP systolic 119–165; BP diastolic 47–86
[2016-07-17] MEDS: ALBUTEROL SULF 2.5 MG/0.5ML(0.5%) NEB SOLN NEB SCH ×4 (00:09→18:40)
[2016-07-17] MEDS: IPRATROPIUM BROM 0.5 MG/2.5ML INH SOL NEB SCH ×4 (00:09→18:39)
[2016-07-17 03:56] LABS: Basophils # (auto) 0 uL; Basophils % (auto) 0.5 % (0.0-2.0); Eosinophils # (auto) 0.1 uL; Eosinophils % (auto) 1.3 % (0.0-7.0); Hematocrit 25.4 % (36.0-46.0); Hemoglobin 8.5 g/dL (12.2-16.2); Lymphocytes # (auto) 0.5 uL; Lymphocytes % (auto) 8.8 % (10.0-50.0); Mean Corpuscular Hemoglobin 29.3 pg (28.0-32.0); Mean Corpuscular Hgb Conc. 33.6 g/dL (32.0-36.0); Mean Corpuscular Volume 87.2 fL (80.0-100.0); Mean Platelet Volume 8.5 fL (7.4-10.4); Monocytes # (auto) 0.3 uL; Monocytes % (auto) 4.8 % (0.0-12.0); Neutrophils # (auto) 5.1 uL; Neutrophils % (auto) 84.6 % (37.0-80.0); Platelet Count (auto) 94 10^3/uL (140-450); Red Cell Distribution Width 13.9 % (11.6-16.0)
[2016-07-17] MEDS: cefTRIAXone 1GM/50ML D5W 50 ML IV SCH ×2 (04:00→16:25)
[2016-07-17 04:13] LABS: Potassium 3.3 mmol/L (3.5-5.1)
[2016-07-17 04:18] LABS: BUN/Creatinine Ratio 30.2; Calcium 7.8 mg/dL (8.5-10.1); Magnesium 1.6 mg/dL (1.6-2.6)
[2016-07-17 04:23] LABS: Phosphorus 2.7 mg/dL (2.5-4.90)
[2016-07-17] MEDS: InsuLIN REG 1unit/0.01ml Soln (100units/ml) SC SCH ×4 (05:46→18:00)
[2016-07-17] MEDS: ACCU-CHEK COMFORT CURVE STRIP VI SCH ×4 (05:46→18:29)
[2016-07-17] MEDS: INSULIN DETEMIR(LEVEMIR) 1unit/0.01ml Soln (100units/ml) SC SCH ×2 (05:47→22:02)
[2016-07-17] MEDS: MIDAZOLAM DRIP 100 mg/100mL NS 100 ML IV SCH (08:00)
[2016-07-17] MEDS: SODIUM CHLOR 0.9% PF (SALINE LOCK) 10ML VIAL IV SCH ×2 (10:11→22:04)
[2016-07-17] MEDS: PANTOPRAZOLE SODIUM 40 MG/10 ML VIAL IV SCH ×2 (10:18→22:04)
[2016-07-17] MEDS ORDERED: POTASSIUM CHL 20MEQ/100ML 100 ML IV ONE (11:15)
[2016-07-17] MEDS ORDERED: MAGNESIUM SULFATE 1GM/100ML 100 ML IV ONE (11:15)
[2016-07-17] MEDS: SODIUM CHLORIDE 0.9% 1,000 ML IV SCH (11:50)
[2016-07-17] MEDS: DEXTROSE (50%) 50ML SYRG IV PRN (12:11)
[2016-07-17] MEDS: Diabetisource AC 1 Liter GT SCH (12:17)
[2016-07-17] MEDS: fentaNYL Drip 2500mCg/250mlNS 250 ML IV SCH (15:18)
[2016-07-17] MEDS: VANCOMYCIN 1GM/250ML D5W 250 ML IV SCH (16:40)
[2016-07-18] VITALS (93 sets, daily range): BP systolic 102–155; BP diastolic 43–97
[2016-07-18] MEDS: ACCU-CHEK COMFORT CURVE STRIP VI SCH ×4 (00:13→18:23)
[2016-07-18] MEDS: ALBUTEROL SULF 2.5 MG/0.5ML(0.5%) NEB SOLN NEB SCH ×4 (00:17→18:36)
[2016-07-18] MEDS: IPRATROPIUM BROM 0.5 MG/2.5ML INH SOL NEB SCH ×4 (00:17→18:36)
[2016-07-18] MEDS: SODIUM CHLORIDE 0.9% 1,000 ML IV SCH ×2 (03:30→14:41)
[2016-07-18] MEDS: cefTRIAXone 1GM/50ML D5W 50 ML IV SCH ×2 (04:00→16:10)
[2016-07-18 04:14] LABS: Basophils # (auto) 0 uL; Basophils % (auto) 0.3 % (0.0-2.0); Eosinophils # (auto) 0.1 uL; Eosinophils % (auto) 1.4 % (0.0-7.0); Hematocrit 26.4 % (36.0-46.0); Hemoglobin 8.8 g/dL (12.2-16.2); Lymphocytes # (auto) 0.5 uL; Lymphocytes % (auto) 9.2 % (10.0-50.0); Mean Corpuscular Hemoglobin 29.3 pg (28.0-32.0); Mean Corpuscular Hgb Conc. 33.3 g/dL (32.0-36.0); Mean Corpuscular Volume 87.8 fL (80.0-100.0); Mean Platelet Volume 8.9 fL (7.4-10.4); Monocytes # (auto) 0.4 uL; Monocytes % (auto) 7.1 % (0.0-12.0); Neutrophils # (auto) 4.8 uL; Platelet Count (auto) 96 10^3/uL (140-450); Red Cell Distribution Width 14.3 % (11.6-16.0); White Blood Cell 5.8 10^3/uL (4.4-10.8)
[2016-07-18 04:27] LABS: BUN/Creatinine Ratio 27.6; Calcium 7.9 mg/dL (8.5-10.1); Magnesium 1.9 mg/dL (1.6-2.6); Potassium 3.4 mmol/L (3.5-5.1)
[2016-07-18] MEDS: InsuLIN REG 1unit/0.01ml Soln (100units/ml) SC SCH ×4 (05:54→18:00)
[2016-07-18] MEDS: INSULIN DETEMIR(LEVEMIR) 1unit/0.01ml Soln (100units/ml) SC SCH ×2 (05:58→22:00)
[2016-07-18] MEDS: SODIUM CHLOR 0.9% PF (SALINE LOCK) 10ML VIAL IV SCH ×2 (10:18→22:00)
[2016-07-18] MEDS: PANTOPRAZOLE SODIUM 40 MG/10 ML VIAL IV SCH ×2 (10:18→22:38)
[2016-07-18] MEDS: MIDAZOLAM DRIP 100 mg/100mL NS 100 ML IV SCH (12:54)
[2016-07-18] MEDS ORDERED: FUROSEMIDE 40 MG/4 ML VIAL IV ONE (16:15)
[2016-07-18] MEDS: VANCOMYCIN 1GM/250ML D5W 250 ML IV SCH (17:06)
[2016-07-18] MEDS: FREE WATER GT SCH (18:26)
[2016-07-18] MEDS: fentaNYL Drip 2500mCg/250mlNS 250 ML IV SCH (20:24)
[2016-07-19] VITALS (94 sets, daily range): BP systolic 124–198; BP diastolic 46–114
[2016-07-19] MEDS: FREE WATER GT SCH ×4 (00:22→17:49)
[2016-07-19] MEDS: IPRATROPIUM BROM 0.5 MG/2.5ML INH SOL NEB SCH ×5 (00:25→23:57)
[2016-07-19] MEDS: ALBUTEROL SULF 2.5 MG/0.5ML(0.5%) NEB SOLN NEB SCH ×5 (00:25→23:57)
[2016-07-19 03:56] LABS: Basophils # (auto) 0 uL; Basophils % (auto) 0.3 % (0.0-2.0); DEFINITIVE VIEW TRANSMISSION; Eosinophils # (auto) 0.1 uL; Eosinophils % (auto) 1.4 % (0.0-7.0); Hematocrit 24.7 % (36.0-46.0); Hemoglobin 8.1 g/dL (12.2-16.2); Lymphocytes # (auto) 0.7 uL; Lymphocytes % (auto) 10.4 % (10.0-50.0); Mean Corpuscular Hemoglobin 28.6 pg (28.0-32.0); Mean Corpuscular Hgb Conc. 32.8 g/dL (32.0-36.0); Mean Corpuscular Volume 87.2 fL (80.0-100.0); Mean Platelet Volume 8.6 fL (7.4-10.4); Monocytes # (auto) 0.7 uL; Monocytes % (auto) 10.3 % (0.0-12.0); Neutrophils # (auto) 4.9 uL; Neutrophils % (auto) 77.6 % (37.0-80.0); Platelet Count (auto) 94 10^3/uL (140-450); Red Cell Distribution Width 14.5 % (11.6-16.0); White Blood Cell 6.3 10^3/uL (4.4-10.8)
[2016-07-19] MEDS: cefTRIAXone 1GM/50ML D5W 50 ML IV SCH ×2 (04:00→15:34)
[2016-07-19 04:16] LABS: BUN/Creatinine Ratio 25.5; Calcium 8.1 mg/dL (8.5-10.1); Potassium 3.4 mmol/L (3.5-5.1)
[2016-07-19] MEDS: InsuLIN REG 1unit/0.01ml Soln (100units/ml) SC SCH ×4 (06:00→18:00)
[2016-07-19] MEDS: ACCU-CHEK COMFORT CURVE STRIP VI SCH ×4 (06:25→17:42)
[2016-07-19] MEDS: INSULIN DETEMIR(LEVEMIR) 1unit/0.01ml Soln (100units/ml) SC SCH ×2 (06:28→22:00)
[2016-07-19] MEDS ORDERED: FUROSEMIDE 40 MG/4 ML VIAL IV ONE (09:15)
[2016-07-19] MEDS: SODIUM CHLOR 0.9% PF (SALINE LOCK) 10ML VIAL IV SCH ×2 (10:07→22:09)
[2016-07-19] MEDS: PANTOPRAZOLE SODIUM 40 MG/10 ML VIAL IV SCH ×2 (10:07→22:08)
[2016-07-19] MEDS ORDERED: LORazepam 2MG/ML-1ML VIAL ONE (11:11)
[2016-07-19] MEDS ORDERED: SUCCINYLCHOLINE CHLORIDE 20 MG/ML 10ML VIAL IV ONE (11:20)
[2016-07-19] MEDS ORDERED: ETOMIDATE (2MG/ML) 20ML VIAL IV ONE (11:20)
[2016-07-19] MEDS: MIDAZOLAM DRIP 100 mg/100mL NS 100 ML IV SCH (12:00)
[2016-07-19] MEDS ORDERED: LORazepam 2MG/ML-1ML VIAL IM ONE (15:15)
[2016-07-19] MEDS: POTASSIUM CHL 20MEQ/100ML 100 ML IV SCH ×2 (15:27→17:20)
[2016-07-19] MEDS: FUROSEMIDE 40 MG/4 ML VIAL IV SCH (17:48)
[2016-07-19] MEDS: VANCOMYCIN 1GM/250ML D5W 250 ML IV SCH (17:49)
[2016-07-19] MEDS: DEXTROSE (50%) 50ML SYRG IV PRN (17:55)
[2016-07-19] MEDS: fentaNYL Drip 2500mCg/250mlNS 250 ML IV SCH (20:35)
[2016-07-20] VITALS (91 sets, daily range): BP systolic 100–178; BP diastolic 45–86
[2016-07-20] MEDS: ACCU-CHEK COMFORT CURVE STRIP VI SCH ×4 (00:10→18:00)
[2016-07-20] MEDS: FREE WATER GT SCH ×4 (00:10→18:00)
[2016-07-20 03:51] LABS: Basophils # (auto) 0 uL; Basophils % (auto) 0.3 % (0.0-2.0); DEFINITIVE VIEW TRANSMISSION; Eosinophils # (auto) 0.1 uL; Eosinophils % (auto) 1.8 % (0.0-7.0); Hematocrit 23.2 % (36.0-46.0); Hemoglobin 7.8 g/dL (12.2-16.2); Lymphocytes # (auto) 0.8 uL; Lymphocytes % (auto) 12.2 % (10.0-50.0); Mean Corpuscular Hemoglobin 29.3 pg (28.0-32.0); Mean Corpuscular Hgb Conc. 33.8 g/dL (32.0-36.0); Mean Corpuscular Volume 86.9 fL (80.0-100.0); Mean Platelet Volume 8.6 fL (7.4-10.4); Monocytes # (auto) 0.9 uL; Monocytes % (auto) 13.9 % (0.0-12.0); Neutrophils # (auto) 4.8 uL; Neutrophils % (auto) 71.8 % (37.0-80.0); Platelet Count (auto) 107 10^3/uL (140-450); Red Cell Distribution Width 14.3 % (11.6-16.0); White Blood Cell 6.7 10^3/uL (4.4-10.8)
[2016-07-20] MEDS: cefTRIAXone 1GM/50ML D5W 50 ML IV SCH (04:00)
[2016-07-20 04:07] LABS: Magnesium 1.5 mg/dL (1.6-2.6); Potassium 3.4 mmol/L (3.5-5.1)
[2016-07-20 04:10] LABS: BUN/Creatinine Ratio 22.4
[2016-07-20 04:12] LABS: Bilirubin, Total 0.3 mg/dL (0.2-1.0)
[2016-07-20] MEDS: InsuLIN REG 1unit/0.01ml Soln (100units/ml) SC SCH ×4 (06:21→19:16)
[2016-07-20] MEDS: FUROSEMIDE 40 MG/4 ML VIAL IV SCH (06:21)
[2016-07-20] MEDS: ALBUTEROL SULF 2.5 MG/0.5ML(0.5%) NEB SOLN NEB SCH ×3 (06:23→19:13)
[2016-07-20] MEDS: INSULIN DETEMIR(LEVEMIR) 1unit/0.01ml Soln (100units/ml) SC SCH ×2 (06:23→22:00)
[2016-07-20] MEDS: IPRATROPIUM BROM 0.5 MG/2.5ML INH SOL NEB SCH ×3 (06:23→19:13)
[2016-07-20] MEDS: SODIUM CHLOR 0.9% PF (SALINE LOCK) 10ML VIAL IV SCH ×2 (10:22→22:00)
[2016-07-20] MEDS: PANTOPRAZOLE SODIUM 40 MG/10 ML VIAL IV SCH ×2 (10:22→22:00)
[2016-07-20] MEDS: POTASSIUM CHL 20MEQ/100ML 100 ML IV SCH ×3 (13:30→17:12)
[2016-07-20] MEDS: MIDAZOLAM DRIP 100 mg/100mL NS 100 ML IV SCH (17:06)
[2016-07-20] MEDS: VANCOMYCIN 1GM/250ML D5W 250 ML IV SCH (17:30)
[2016-07-20] MEDS: METOPROLOL TARTRATE 50 MG TAB PO SCH ×2 (19:17→22:00)
[2016-07-20] MEDS: fentaNYL Drip 2500mCg/250mlNS 250 ML IV SCH (20:35)
[2016-07-21] VITALS (108 sets, daily range): BP systolic 104–182; BP diastolic 36–120
[2016-07-21] MEDS: ALBUTEROL SULF 2.5 MG/0.5ML(0.5%) NEB SOLN NEB SCH ×4 (00:09→18:19)
[2016-07-21] MEDS: IPRATROPIUM BROM 0.5 MG/2.5ML INH SOL NEB SCH ×4 (00:09→18:19)
[2016-07-21] MEDS: FREE WATER GT SCH ×4 (00:25→18:00)
[2016-07-21] MEDS: FUROSEMIDE 40 MG/4 ML VIAL IV SCH ×3 (01:30→18:17)
[2016-07-21] MEDS: InsuLIN REG 1unit/0.01ml Soln (100units/ml) SC SCH ×4 (06:00→18:17)
[2016-07-21] MEDS: ACCU-CHEK COMFORT CURVE STRIP VI SCH ×4 (06:00→18:00)
[2016-07-21] MEDS: INSULIN DETEMIR(LEVEMIR) 1unit/0.01ml Soln (100units/ml) SC SCH ×2 (06:47→22:00)
[2016-07-21 08:26] LABS: Basophils # (auto) 0 uL; Basophils % (auto) 0.1 % (0.0-2.0); Eosinophils # (auto) 0.2 uL; Eosinophils % (auto) 1.7 % (0.0-7.0); Hematocrit 31.3 % (36.0-46.0); Hemoglobin 10.5 g/dL (12.2-16.2); Lymphocytes # (auto) 1.5 uL; Lymphocytes % (auto) 12.8 % (10.0-50.0); Mean Corpuscular Hemoglobin 29.1 pg (28.0-32.0); Mean Corpuscular Hgb Conc. 33.7 g/dL (32.0-36.0); Mean Corpuscular Volume 86.4 fL (80.0-100.0); Mean Platelet Volume 7.8 fL (7.4-10.4); Monocytes # (auto) 1.2 uL; Monocytes % (auto) 10.1 % (0.0-12.0); Neutrophils # (auto) 8.7 uL; Neutrophils % (auto) 75.3 % (37.0-80.0); Platelet Count (auto) 191 10^3/uL (140-450); Red Cell Distribution Width 14.6 % (11.6-16.0); SUSPECT VIEW TRANSMISSION; White Blood Cell 11.6 10^3/uL (4.4-10.8)
[2016-07-21 08:55] LABS: BUN/Creatinine Ratio 22.3; Potassium 3.7 mmol/L (3.5-5.1)
[2016-07-21 09:03] LABS: Temperature: 24.3 C (20.0-25.0)
[2016-07-21] MEDS: SODIUM CHLOR 0.9% PF (SALINE LOCK) 10ML VIAL IV SCH ×2 (10:44→22:27)
[2016-07-21] MEDS: METOPROLOL TARTRATE 50 MG TAB PO SCH ×2 (10:44→22:35)
[2016-07-21] MEDS: PANTOPRAZOLE SODIUM 40 MG/10 ML VIAL IV SCH ×2 (10:44→22:27)
[2016-07-21] MEDS: cefTRIAXone 1GM/50ML D5W 50 ML IV SCH (11:02)
[2016-07-21] MEDS: MAGNESIUM SULFATE 1GM/100ML 100 ML IV SCH ×2 (13:21→14:26)
[2016-07-21] MEDS: LINEZOLID 600MG/300ML 300 ML IV SCH ×2 (13:34→22:27)
[2016-07-21] MEDS ORDERED: FUROSEMIDE 40 MG/4 ML VIAL IV ONE (14:00)
[2016-07-21] MEDS ORDERED: METOPROLOL TARTRATE 50 MG TAB PO ONE (16:00)
[2016-07-21] MEDS: MIDAZOLAM DRIP 100 mg/100mL NS 100 ML IV SCH (17:08)
[2016-07-21] MEDS: fentaNYL Drip 2500mCg/250mlNS 250 ML IV SCH (20:35)
[2016-07-22] VITALS (93 sets, daily range): BP systolic 86–179; BP diastolic 29–114
[2016-07-22] MEDS: IPRATROPIUM BROM 0.5 MG/2.5ML INH SOL NEB SCH ×4 (00:21→18:55)
[2016-07-22] MEDS: ALBUTEROL SULF 2.5 MG/0.5ML(0.5%) NEB SOLN NEB SCH ×4 (00:21→18:55)
[2016-07-22] MEDS: InsuLIN REG 1unit/0.01ml Soln (100units/ml) SC SCH ×5 (00:45→22:14)
[2016-07-22 04:01] LABS: Hematocrit 28.7 % (36.0-46.0); Hemoglobin 9.6 g/dL (12.2-16.2); Mean Corpuscular Hemoglobin 28.8 pg (28.0-32.0); Mean Corpuscular Hgb Conc. 33.5 g/dL (32.0-36.0); Mean Corpuscular Volume 86.2 fL (80.0-100.0); Mean Platelet Volume 8.1 fL (7.4-10.4); Platelet Count (auto) 209 10^3/uL (140-450); Red Cell Distribution Width 14.4 % (11.6-16.0); SUSPECT VIEW TRANSMISSION; White Blood Cell 11.5 10^3/uL (4.4-10.8)
[2016-07-22 04:23] LABS: Potassium 3.1 mmol/L (3.5-5.1)
[2016-07-22 04:28] LABS: Promyelocytes % 0; Reactive Lymphocytes 0
[2016-07-22 04:29] LABS: BUN/Creatinine Ratio 21.1; Calcium 7.8 mg/dL (8.5-10.1)
[2016-07-22 04:59] LABS: B-Type Natriuretic Peptide 251.18 pg/mL (0-100); Temperature: 22.2 C (20.0-25.0)
[2016-07-22 05:36] LABS: Metamyelocytes % 5; Myelocytes % 6
[2016-07-22 05:37] LABS: Platelet Estimate Adequate; RBC Morphology Normal
[2016-07-22] MEDS: ACCU-CHEK COMFORT CURVE STRIP VI SCH ×4 (05:40→18:15)
[2016-07-22] MEDS: INSULIN DETEMIR(LEVEMIR) 1unit/0.01ml Soln (100units/ml) SC SCH ×2 (05:40→22:51)
[2016-07-22] MEDS: FREE WATER GT SCH ×4 (05:41→17:27)
[2016-07-22] MEDS: fentaNYL Drip 2500mCg/250mlNS 250 ML IV SCH ×2 (05:45→14:16)
[2016-07-22] MEDS: FUROSEMIDE 40 MG/4 ML VIAL IV SCH ×2 (05:54→18:14)
[2016-07-22] MEDS: cefTRIAXone 1GM/50ML D5W 50 ML IV SCH (09:00)
[2016-07-22] MEDS: SODIUM CHLOR 0.9% PF (SALINE LOCK) 10ML VIAL IV SCH ×2 (09:57→21:47)
[2016-07-22] MEDS: METOPROLOL TARTRATE 50 MG TAB PO SCH ×2 (10:00→22:30)
[2016-07-22] MEDS ORDERED: hydrALAZINE HCL 20 MG/ML VL ONE (10:03)
[2016-07-22] MEDS: hydrALAZINE HCL 20 MG/ML VL IV PRN (10:15)
[2016-07-22] MEDS: PANTOPRAZOLE SODIUM 40 MG/10 ML VIAL IV SCH ×2 (10:19→21:47)
[2016-07-22] MEDS: LINEZOLID 600MG/300ML 300 ML IV SCH ×2 (10:20→21:47)
[2016-07-22] MEDS ORDERED: SODIUM CHLORIDE LOCK 20 ML ONE (11:30)
[2016-07-22] MEDS ORDERED: LIDOCAINE 2%HCL (LOCAL ANESTH.) INJ 20ML MDV ONE (11:30)
[2016-07-22] MEDS ORDERED: LIDOCAINE HCL 2% TOP JELLY 5ML TOP ONE (11:30)
[2016-07-22] MEDS ORDERED: EPINEPHrine HCL 1 MG/1 ML AMP ONE (11:30)
[2016-07-22] MEDS: POTASSIUM CHL 20MEQ/100ML 100 ML IV SCH ×2 (12:15→14:18)
[2016-07-22] MEDS: MIDAZOLAM DRIP 100 mg/100mL NS 100 ML IV SCH ×3 (14:15→22:00)
[2016-07-23] VITALS (97 sets, daily range): BP systolic 107–158; BP diastolic 38–75
[2016-07-23] MEDS: ALBUTEROL SULF 2.5 MG/0.5ML(0.5%) NEB SOLN NEB SCH ×4 (00:17→18:51)
[2016-07-23] MEDS: IPRATROPIUM BROM 0.5 MG/2.5ML INH SOL NEB SCH ×4 (00:17→18:51)
[2016-07-23] MEDS: ACCU-CHEK COMFORT CURVE STRIP VI SCH ×4 (00:21→18:11)
[2016-07-23] MEDS: METOPROLOL TARTRATE 50 MG TAB PO SCH ×3 (00:30→22:27)
[2016-07-23] MEDS: fentaNYL Drip 2500mCg/250mlNS 250 ML IV SCH ×2 (01:40→23:00)
[2016-07-23 03:46] LABS: Basophils # (auto) 0 uL; Basophils % (auto) 0.2 % (0.0-2.0); Eosinophils # (auto) 0.3 uL; Hematocrit 30.6 % (36.0-46.0); Hemoglobin 10.1 g/dL (12.2-16.2); Lymphocytes # (auto) 1.3 uL; Lymphocytes % (auto) 12.7 % (10.0-50.0); Mean Corpuscular Hemoglobin 28.6 pg (28.0-32.0); Mean Corpuscular Hgb Conc. 33.1 g/dL (32.0-36.0); Mean Corpuscular Volume 86.2 fL (80.0-100.0); Mean Platelet Volume 7.8 fL (7.4-10.4); Monocytes # (auto) 1.1 uL; Neutrophils # (auto) 7.5 uL; Neutrophils % (auto) 73.1 % (37.0-80.0); Platelet Count (auto) 266 10^3/uL (140-450); Red Cell Distribution Width 14.4 % (11.6-16.0); White Blood Cell 10.2 10^3/uL (4.4-10.8)
[2016-07-23 04:05] LABS: Calcium 7.7 mg/dL (8.5-10.1); Potassium 3.1 mmol/L (3.5-5.1)
[2016-07-23 04:07] LABS: BUN/Creatinine Ratio 18.9
[2016-07-23 05:12] LABS: Temperature: 21.2 C (20.0-25.0)
[2016-07-23] MEDS: InsuLIN REG 1unit/0.01ml Soln (100units/ml) SC SCH ×3 (06:00→18:00)
[2016-07-23] MEDS: FREE WATER GT SCH ×5 (06:22→23:30)
[2016-07-23] MEDS: FUROSEMIDE 40 MG/4 ML VIAL IV SCH ×2 (06:23→17:39)
[2016-07-23] MEDS: INSULIN DETEMIR(LEVEMIR) 1unit/0.01ml Soln (100units/ml) SC SCH ×2 (06:23→22:00)
[2016-07-23] MEDS ORDERED: POTASSIUM CHL 20MEQ/100ML 100 ML IV SCH (07:15)
[2016-07-23] MEDS: POTASSIUM CHL 20MEQ/100ML 100 ML IV SCH ×2 (07:44→08:59)
[2016-07-23] MEDS: cefTRIAXone 1GM/50ML D5W 50 ML IV SCH (09:11)
[2016-07-23] MEDS: SODIUM CHLOR 0.9% PF (SALINE LOCK) 10ML VIAL IV SCH ×2 (09:28→22:26)
[2016-07-23] MEDS: PANTOPRAZOLE SODIUM 40 MG/10 ML VIAL IV SCH ×2 (09:28→22:26)
[2016-07-23] MEDS: LINEZOLID 600MG/300ML 300 ML IV SCH ×2 (09:28→22:26)
[2016-07-23 19:09] LABS: Albumin 1.9 g/dL (3.4-5.0); BUN/Creatinine Ratio 16.7; Calcium 7.7 mg/dL (8.5-10.1); Potassium 3.4 mmol/L (3.5-5.1)
[2016-07-23 19:12] LABS: Bilirubin, Total 0.4 mg/dL (0.2-1.0); Total Protein 6.4 g/dL (6.4-8.2)
[2016-07-24] VITALS (99 sets, daily range): BP systolic 43–188; BP diastolic 7–120
[2016-07-24] MEDS: IPRATROPIUM BROM 0.5 MG/2.5ML INH SOL NEB SCH ×4 (00:21→18:27)
[2016-07-24] MEDS: ALBUTEROL SULF 2.5 MG/0.5ML(0.5%) NEB SOLN NEB SCH ×4 (00:21→18:27)
[2016-07-24] MEDS: ACETAMINOPHEN 650 mg PER 20 mL UD GT PRN (04:00)
[2016-07-24 04:44] LABS: Basophils # (auto) 0 uL; Basophils % (auto) 0.2 % (0.0-2.0); Eosinophils # (auto) 0.3 uL; Eosinophils % (auto) 3.3 % (0.0-7.0); Hematocrit 29.2 % (36.0-46.0); Hemoglobin 9.8 g/dL (12.2-16.2); Lymphocytes # (auto) 1.5 uL; Lymphocytes % (auto) 15.3 % (10.0-50.0); Mean Corpuscular Hemoglobin 28.9 pg (28.0-32.0); Mean Corpuscular Hgb Conc. 33.6 g/dL (32.0-36.0); Mean Corpuscular Volume 85.8 fL (80.0-100.0); Mean Platelet Volume 7.7 fL (7.4-10.4); Monocytes # (auto) 1.2 uL; Monocytes % (auto) 12.2 % (0.0-12.0); Neutrophils # (auto) 6.8 uL; Platelet Count (auto) 314 10^3/uL (140-450); Red Cell Distribution Width 14.4 % (11.6-16.0); White Blood Cell 9.8 10^3/uL (4.4-10.8)
[2016-07-24 04:58] LABS: BUN/Creatinine Ratio 17.2; Potassium 3.2 mmol/L (3.5-5.1)
[2016-07-24 05:10] LABS: Temperature: 21.7 C (20.0-25.0)
[2016-07-24] MEDS: FREE WATER GT SCH ×4 (06:00→23:52)
[2016-07-24] MEDS: InsuLIN REG 1unit/0.01ml Soln (100units/ml) SC SCH ×5 (06:00→23:52)
[2016-07-24] MEDS: ACCU-CHEK COMFORT CURVE STRIP VI SCH ×5 (06:01→23:52)
[2016-07-24] MEDS: INSULIN DETEMIR(LEVEMIR) 1unit/0.01ml Soln (100units/ml) SC SCH ×2 (06:01→22:04)
[2016-07-24] MEDS: FUROSEMIDE 40 MG/4 ML VIAL IV SCH ×2 (06:01→17:40)
[2016-07-24] MEDS: POTASSIUM CHL 20MEQ/100ML 100 ML IV SCH ×2 (07:31→08:56)
[2016-07-24] MEDS: hydrALAZINE HCL 20 MG/ML VL IV PRN (07:32)
[2016-07-24] MEDS: cefTRIAXone 1GM/50ML D5W 50 ML IV SCH (08:57)
[2016-07-24] MEDS: LINEZOLID 600MG/300ML 300 ML IV SCH ×2 (09:45→21:38)
[2016-07-24] MEDS: PANTOPRAZOLE SODIUM 40 MG/10 ML VIAL IV SCH ×2 (09:45→21:38)
[2016-07-24] MEDS: METOPROLOL TARTRATE 50 MG TAB PO SCH ×2 (09:46→21:37)
[2016-07-24] MEDS: SODIUM CHLOR 0.9% PF (SALINE LOCK) 10ML VIAL IV SCH ×2 (09:46→21:38)
[2016-07-24] MEDS ORDERED: POTASSIUM CHL 20MEQ/100ML 100 ML IV ONE (11:30)
[2016-07-24] MEDS: MIDAZOLAM DRIP 100 mg/100mL NS 100 ML IV SCH (12:54)
[2016-07-24] MEDS ORDERED: LORazepam 2MG/ML-1ML VIAL IM STA (14:05)
[2016-07-24] MEDS: Diabetisource AC 1 Liter GT SCH (22:42)
[2016-07-25] VITALS (80 sets, daily range): BP systolic 88–163; BP diastolic 32–102
[2016-07-25] MEDS ORDERED: ALBUTEROL SULF 2.5 MG/0.5ML(0.5%) NEB SOLN ONE (00:14)
[2016-07-25] MEDS ORDERED: IPRATROPIUM BROM 0.5 MG/2.5ML INH SOL ONE (00:14)
[2016-07-25] MEDS: ACETAMINOPHEN 650 mg PER 20 mL UD GT PRN (01:05)
[2016-07-25] MEDS: fentaNYL Drip 2500mCg/250mlNS 250 ML IV SCH ×2 (01:05→19:00)
[2016-07-25 03:43] LABS: Basophils # (auto) 0 uL; Basophils % (auto) 0.4 % (0.0-2.0); Eosinophils # (auto) 0.3 uL; Eosinophils % (auto) 3.5 % (0.0-7.0); Hematocrit 27.3 % (36.0-46.0); Hemoglobin 9.1 g/dL (12.2-16.2); Lymphocytes # (auto) 1.7 uL; Lymphocytes % (auto) 22.4 % (10.0-50.0); Mean Corpuscular Hemoglobin 28.8 pg (28.0-32.0); Mean Corpuscular Hgb Conc. 33.3 g/dL (32.0-36.0); Mean Corpuscular Volume 86.7 fL (80.0-100.0); Mean Platelet Volume 7.7 fL (7.4-10.4); Monocytes % (auto) 12.8 % (0.0-12.0); Neutrophils # (auto) 4.6 uL; Neutrophils % (auto) 60.9 % (37.0-80.0); Platelet Count (auto) 305 10^3/uL (140-450); Red Cell Distribution Width 14.3 % (11.6-16.0); White Blood Cell 7.5 10^3/uL (4.4-10.8)
[2016-07-25 03:58] LABS: BUN/Creatinine Ratio 14.4; Potassium 3.1 mmol/L (3.5-5.1)
[2016-07-25 04:22] LABS: B-Type Natriuretic Peptide 379.66 pg/mL (0-100)
[2016-07-25 04:23] LABS: Temperature: 23.1 C (20.0-25.0)
[2016-07-25] MEDS: FREE WATER GT SCH ×3 (05:58→16:10)
[2016-07-25] MEDS: InsuLIN REG 1unit/0.01ml Soln (100units/ml) SC SCH ×3 (06:00→17:11)
[2016-07-25] MEDS: ACCU-CHEK COMFORT CURVE STRIP VI SCH ×3 (06:15→17:11)
[2016-07-25] MEDS: INSULIN DETEMIR(LEVEMIR) 1unit/0.01ml Soln (100units/ml) SC SCH (06:17)
[2016-07-25] MEDS: FUROSEMIDE 40 MG/4 ML VIAL IV SCH ×2 (06:17→17:10)
[2016-07-25] MEDS: POTASSIUM CHL 20MEQ/100ML 100 ML IV SCH ×4 (06:18→14:15)
[2016-07-25] MEDS ORDERED: DEXMEDETOMIDINE HCL 400 MCG in SODIUM CHL 0.9% 96 ML IV SCH ×4 (07:06)
[2016-07-25] MEDS: DEXMEDETOMIDINE HCL 400 MCG in SODIUM CHL 0.9% 96 ML IV SCH (07:30)
[2016-07-25] MEDS ORDERED: ONDANSETRON HCL 4 MG/2 ML VIAL ONE (08:58)
[2016-07-25] MEDS: cefTRIAXone 1GM/50ML D5W 50 ML IV SCH (09:28)
[2016-07-25] MEDS: SODIUM CHLOR 0.9% PF (SALINE LOCK) 10ML VIAL IV SCH ×2 (10:00→21:37)
[2016-07-25] MEDS: LINEZOLID 600MG/300ML 300 ML IV SCH ×2 (10:00→22:00)
[2016-07-25] MEDS: METOPROLOL TARTRATE 50 MG TAB PO SCH ×2 (10:00→21:37)
[2016-07-25] MEDS: PANTOPRAZOLE SODIUM 40 MG/10 ML VIAL IV SCH ×2 (10:00→22:00)
[2016-07-25] MEDS: MIDAZOLAM DRIP 100 mg/100mL NS 100 ML IV SCH (12:54)
[2016-07-25] MEDS ORDERED: ALBUTEROL SULF 2.5 MG/0.5ML(0.5%) NEB SOLN NEB SCH (14:00)
[2016-07-25] MEDS ORDERED: IPRATROPIUM BROM 0.5 MG/2.5ML INH SOL NEB SCH (14:00)
[2016-07-25] MEDS ORDERED: ALBUTEROL SULF 2.5 MG/0.5ML(0.5%) NEB SOLN NEB PRN (19:15)
[2016-07-26] VITALS (91 sets, daily range): BP systolic 68–169; BP diastolic 33–110
[2016-07-26] MEDS: DEXMEDETOMIDINE HCL 400 MCG in SODIUM CHL 0.9% 96 ML IV SCH (01:00)
[2016-07-26] MEDS: fentaNYL Drip 2500mCg/250mlNS 250 ML IV SCH ×2 (07:08→22:31)
[2016-07-26] MEDS ORDERED: DEXTROSE (50%) 50ML SYRG IV PRN (12:15)
[2016-07-26] MEDS ORDERED: LORazepam 2MG/ML-1ML VIAL IV PRN (12:15)
[2016-07-26] MEDS ORDERED: ACETAMINOPHEN 650 mg PER 20 mL UD GT PRN (12:15)
[2016-07-26] MEDS ORDERED: FUROSEMIDE 40 MG/4 ML VIAL IV ONE (12:15)
[2016-07-26] MEDS ORDERED: cefTRIAXone 1GM/50ML D5W 50 ML IV ONE (12:30)
[2016-07-26] MEDS: SODIUM CHLORIDE 0.9% 1,000 ML IV SCH (12:45)
[2016-07-26] MEDS ORDERED: LINEZOLID 600MG/300ML 300 ML IV SCH ×2 (13:00→22:00)
[2016-07-26] MEDS: LINEZOLID 600MG/300ML 300 ML IV SCH (14:20)
[2016-07-26] MEDS ORDERED: LEVOTHYROXINE SODIUM 100 MCG/5 ML INJ IV ONE (17:15)
[2016-07-26] MEDS: ACCU-CHEK COMFORT CURVE STRIP VI SCH (18:20)
[2016-07-26] MEDS: InsuLIN REG 1unit/0.01ml Soln (100units/ml) SC SCH (18:35)
[2016-07-26] MEDS: IPRATROPIUM BROM 0.5 MG/2.5ML INH SOL NEB SCH (18:52)
[2016-07-26] MEDS: ALBUTEROL SULF 2.5 MG/0.5ML(0.5%) NEB SOLN NEB SCH (18:53)
[2016-07-26] MEDS: METOPROLOL TARTRATE 50 MG TAB PO SCH (22:00)
[2016-07-26] MEDS: PANTOPRAZOLE SODIUM 40 MG/10 ML VIAL IV SCH (22:31)
[2016-07-27] VITALS (77 sets, daily range): BP systolic 97–181; BP diastolic 42–92
[2016-07-27] MEDS: ACCU-CHEK COMFORT CURVE STRIP VI SCH ×4 (00:04→17:49)
[2016-07-27] MEDS: InsuLIN REG 1unit/0.01ml Soln (100units/ml) SC SCH ×4 (00:19→17:52)
[2016-07-27] MEDS: LINEZOLID 600MG/300ML 300 ML IV SCH ×2 (02:25→14:41)
[2016-07-27] MEDS: SODIUM CHLORIDE 0.9% 1,000 ML IV SCH ×2 (04:55→21:35)
[2016-07-27] MEDS: DEXMEDETOMIDINE HCL 400 MCG in SODIUM CHL 0.9% 96 ML IV SCH (05:56)
[2016-07-27] MEDS: IPRATROPIUM BROM 0.5 MG/2.5ML INH SOL NEB SCH ×4 (06:03→19:00)
[2016-07-27] MEDS: ALBUTEROL SULF 2.5 MG/0.5ML(0.5%) NEB SOLN NEB SCH ×4 (06:03→19:00)
[2016-07-27] MEDS: LEVOTHYROXINE SODIUM 100 MCG TAB PO SCH ×2 (06:47→10:11)
[2016-07-27] MEDS: cefTRIAXone 1GM/50ML D5W 50 ML IV SCH (10:10)
[2016-07-27] MEDS: PANTOPRAZOLE SODIUM 40 MG/10 ML VIAL IV SCH ×2 (10:10→21:44)
[2016-07-27] MEDS: FUROSEMIDE 40 MG/4 ML VIAL IV SCH (10:10)
[2016-07-27] MEDS: METOPROLOL TARTRATE 50 MG TAB PO SCH ×2 (10:11→21:44)
[2016-07-27] MEDS ORDERED: fentaNYL 50MCG/HR 50 MCG/HR PAT TD SCH (10:15)
[2016-07-27] MEDS: fentaNYL 50MCG/HR 50 MCG/HR PAT TD SCH (11:21)
[2016-07-27] MEDS: LISINOPRIL 10 MG TAB PO SCH (12:20)
[2016-07-27] MEDS: hydrALAZINE HCL 20 MG/ML VL IV PRN (15:05)
[2016-07-27] MEDS: fentaNYL Drip 2500mCg/250mlNS 250 ML IV SCH (16:24)
[2016-07-27] MEDS: Boost Glucose Control 8 Ounces PO SCH (17:53)
[2016-07-28] VITALS (14 sets, daily range): BP systolic 106–177; BP diastolic 47–99
[2016-07-28] MEDS: ACCU-CHEK COMFORT CURVE STRIP VI SCH ×4 (00:09→18:18)
[2016-07-28] MEDS: InsuLIN REG 1unit/0.01ml Soln (100units/ml) SC SCH ×4 (00:09→18:17)
[2016-07-28] MEDS: LINEZOLID 600MG/300ML 300 ML IV SCH ×2 (02:00→16:11)
[2016-07-28 03:46] LABS: Basophils # (auto) 0 uL; Basophils % (auto) 0.4 % (0.0-2.0); Eosinophils # (auto) 0.1 uL; Eosinophils % (auto) 0.7 % (0.0-7.0); Hematocrit 28.8 % (36.0-46.0); Hemoglobin 9.6 g/dL (12.2-16.2); Lymphocytes # (auto) 1.3 uL; Lymphocytes % (auto) 13.9 % (10.0-50.0); Mean Corpuscular Hemoglobin 28.8 pg (28.0-32.0); Mean Corpuscular Hgb Conc. 33.2 g/dL (32.0-36.0); Mean Corpuscular Volume 86.8 fL (80.0-100.0); Mean Platelet Volume 7.5 fL (7.4-10.4); Monocytes # (auto) 0.9 uL; Monocytes % (auto) 9.4 % (0.0-12.0); Neutrophils # (auto) 6.9 uL; Neutrophils % (auto) 75.6 % (37.0-80.0); Platelet Count (auto) 389 10^3/uL (140-450); Red Cell Distribution Width 14.4 % (11.6-16.0); White Blood Cell 9.2 10^3/uL (4.4-10.8)
[2016-07-28 03:50] LABS: BUN/Creatinine Ratio 16.7; Calcium 7.8 mg/dL (8.5-10.1); Potassium 4.2 mmol/L (3.5-5.1)
[2016-07-28] MEDS: IPRATROPIUM BROM 0.5 MG/2.5ML INH SOL NEB SCH ×4 (05:53→18:45)
[2016-07-28] MEDS: ALBUTEROL SULF 2.5 MG/0.5ML(0.5%) NEB SOLN NEB SCH ×4 (05:53→18:45)
[2016-07-28] MEDS: LEVOTHYROXINE SODIUM 100 MCG TAB PO SCH (06:06)
[2016-07-28] MEDS: hydrALAZINE HCL 20 MG/ML VL IV PRN (06:06)
[2016-07-28] MEDS ORDERED: DEXMEDETOMIDINE HCL 400 MCG in SODIUM CHL 0.9% 96 ML IV SCH (07:30)
[2016-07-28] MEDS: Boost Glucose Control 8 Ounces PO SCH ×3 (08:00→18:17)
[2016-07-28] MEDS: FUROSEMIDE 40 MG/4 ML VIAL IV SCH (09:26)
[2016-07-28] MEDS: METOPROLOL TARTRATE 50 MG TAB PO SCH ×2 (09:27→21:28)
[2016-07-28] MEDS: cefTRIAXone 1GM/50ML D5W 50 ML IV SCH (09:27)
[2016-07-28] MEDS: LISINOPRIL 10 MG TAB PO SCH (09:27)
[2016-07-28] MEDS: PANTOPRAZOLE SODIUM 40 MG/10 ML VIAL IV SCH (09:27)
[2016-07-28] MEDS: SODIUM CHLORIDE 0.9% 1,000 ML IV SCH (16:11)
[2016-07-28] MEDS: HALOPERIDOL LACTATE 5 MG/ML INJ VIAL IM PRN ×2 (17:29→18:18)
[2016-07-28] MEDS ORDERED: HALOPERIDOL LACTATE 5 MG/ML INJ VIAL IM ONE (19:45)
[2016-07-28] MEDS ORDERED: FUROSEMIDE 40 MG/4 ML VIAL IV ONE (20:30)
[2016-07-29] VITALS (7 sets, daily range): BP systolic 120–209; BP diastolic 75–92
[2016-07-29] MEDS: HALOPERIDOL LACTATE 5 MG/ML INJ VIAL IM PRN (01:28)
[2016-07-29] MEDS: LINEZOLID 600MG/300ML 300 ML IV SCH ×2 (01:28→16:05)
[2016-07-29] MEDS: ALBUTEROL SULF 2.5 MG/0.5ML(0.5%) NEB SOLN NEB SCH ×5 (01:35→18:54)
[2016-07-29] MEDS: IPRATROPIUM BROM 0.5 MG/2.5ML INH SOL NEB SCH ×5 (01:35→18:54)
[2016-07-29] MEDS: ACCU-CHEK COMFORT CURVE STRIP VI SCH ×4 (05:05→18:44)
[2016-07-29] MEDS: InsuLIN REG 1unit/0.01ml Soln (100units/ml) SC SCH ×4 (05:05→18:44)
[2016-07-29] MEDS: hydrALAZINE HCL 20 MG/ML VL IV PRN ×3 (05:06→23:55)
[2016-07-29] MEDS: SODIUM CHLORIDE 0.9% 1,000 ML IV SCH ×2 (07:18→23:35)
[2016-07-29] MEDS: LEVOTHYROXINE SODIUM 100 MCG TAB PO SCH (07:18)
[2016-07-29] MEDS: Boost Glucose Control 8 Ounces PO SCH ×3 (08:00→18:44)
[2016-07-29 08:04] LABS: Basophils # (auto) 0 uL; Basophils % (auto) 0.3 % (0.0-2.0); Eosinophils # (auto) 0 uL; Eosinophils % (auto) 0.1 % (0.0-7.0); Hematocrit 29.4 % (36.0-46.0); Hemoglobin 9.7 g/dL (12.2-16.2); Lymphocytes # (auto) 0.7 uL; Lymphocytes % (auto) 5.4 % (10.0-50.0); Mean Corpuscular Hemoglobin 28.6 pg (28.0-32.0); Mean Corpuscular Volume 86.8 fL (80.0-100.0); Mean Platelet Volume 7.2 fL (7.4-10.4); Monocytes % (auto) 7.7 % (0.0-12.0); Neutrophils # (auto) 11.5 uL; Neutrophils % (auto) 86.5 % (37.0-80.0); Platelet Count (auto) 411 10^3/uL (140-450); Red Cell Distribution Width 14.6 % (11.6-16.0); White Blood Cell 13.3 10^3/uL (4.4-10.8)
[2016-07-29 08:26] LABS: BUN/Creatinine Ratio 22.1; Calcium 8.4 mg/dL (8.5-10.1); Potassium 3.9 mmol/L (3.5-5.1)
[2016-07-29] MEDS: cefTRIAXone 1GM/50ML D5W 50 ML IV SCH (10:09)
[2016-07-29] MEDS: FUROSEMIDE 40 MG/4 ML VIAL IV SCH ×2 (10:10→14:44)
[2016-07-29] MEDS: METOPROLOL TARTRATE 50 MG TAB PO SCH ×2 (10:55→21:59)
[2016-07-29] MEDS: PANTOPRAZOLE 40 MG TAB PO SCH (10:55)
[2016-07-29] MEDS: LISINOPRIL 10 MG TAB PO SCH (10:55)
[2016-07-29] MEDS ORDERED: ENOXAPARIN SOD 100 MG/1 ML SYRINGE SC ONE (17:15)
[2016-07-30] MEDS: ACCU-CHEK COMFORT CURVE STRIP VI SCH ×3 (00:02→12:00)
[2016-07-30] MEDS: InsuLIN REG 1unit/0.01ml Soln (100units/ml) SC SCH ×4 (00:03→18:00)
[2016-07-30] MEDS: LINEZOLID 600MG/300ML 300 ML IV SCH ×2 (01:41→13:46)
[2016-07-30 04:36] VITALS: BP 166/79
[2016-07-30] MEDS: LEVOTHYROXINE SODIUM 100 MCG TAB PO SCH (06:09)
[2016-07-30] MEDS: hydrALAZINE HCL 20 MG/ML VL IV PRN ×2 (06:09→23:06)
[2016-07-30] MEDS: ALBUTEROL SULF 2.5 MG/0.5ML(0.5%) NEB SOLN NEB SCH ×4 (06:13→18:49)
[2016-07-30] MEDS: IPRATROPIUM BROM 0.5 MG/2.5ML INH SOL NEB SCH ×4 (06:13→18:49)
[2016-07-30] MEDS: Boost Glucose Control 8 Ounces PO SCH ×3 (08:00→18:00)
[2016-07-30 08:58] VITALS: BP 156/74
[2016-07-30] MEDS: cefTRIAXone 1GM/50ML D5W 50 ML IV SCH (09:10)
[2016-07-30] MEDS: FUROSEMIDE 40 MG/4 ML VIAL IV SCH ×2 (09:11→13:51)
[2016-07-30] MEDS: PANTOPRAZOLE 40 MG TAB PO SCH (09:11)
[2016-07-30] MEDS: METOPROLOL TARTRATE 50 MG TAB PO SCH ×2 (09:11→21:49)
[2016-07-30] MEDS: LISINOPRIL 10 MG TAB PO SCH (09:12)
[2016-07-30] MEDS: fentaNYL 50MCG/HR 50 MCG/HR PAT TD SCH (09:13)
[2016-07-30 13:00] VITALS: BP 140/80
[2016-07-30] MEDS: SODIUM CHLORIDE 0.9% 1,000 ML IV SCH (16:15)
[2016-07-30 17:05] VITALS: BP 137/83
[2016-07-30 20:00] VITALS: BP 168/73
[2016-07-30 22:00] VITALS: BP 168/73
[2016-07-31] MEDS: LINEZOLID 600MG/300ML 300 ML IV SCH ×2 (04:16→14:00)
[2016-07-31 05:32] VITALS: BP 151/73
[2016-07-31] MEDS: ACCU-CHEK COMFORT CURVE STRIP VI SCH ×5 (05:46→23:58)
[2016-07-31] MEDS: LEVOTHYROXINE SODIUM 100 MCG TAB PO SCH (06:09)
[2016-07-31] MEDS: InsuLIN REG 1unit/0.01ml Soln (100units/ml) SC SCH ×4 (06:09→18:00)
[2016-07-31] MEDS: IPRATROPIUM BROM 0.5 MG/2.5ML INH SOL NEB SCH ×3 (07:23→14:21)
[2016-07-31] MEDS: ALBUTEROL SULF 2.5 MG/0.5ML(0.5%) NEB SOLN NEB SCH ×3 (07:23→14:21)
[2016-07-31] MEDS: Boost Glucose Control 8 Ounces PO SCH ×3 (08:00→18:00)
[2016-07-31] MEDS: METOPROLOL TARTRATE 50 MG TAB PO SCH ×2 (08:49→21:32)
[2016-07-31] MEDS: FUROSEMIDE 40 MG/4 ML VIAL IV SCH ×2 (08:49→17:55)
[2016-07-31] MEDS: PANTOPRAZOLE 40 MG TAB PO SCH (08:50)
[2016-07-31] MEDS: LISINOPRIL 10 MG TAB PO SCH (08:50)
[2016-07-31] MEDS: cefTRIAXone 1GM/50ML D5W 50 ML IV SCH (08:51)
[2016-07-31] MEDS: SODIUM CHLORIDE 0.9% 1,000 ML IV SCH (08:55)
[2016-07-31 09:00] VITALS: BP 196/86
[2016-07-31 13:03] VITALS: BP 157/77
[2016-07-31 17:00] VITALS: BP 184/85
[2016-07-31] MEDS: hydrALAZINE HCL 20 MG/ML VL IV PRN ×2 (17:54→23:30)
[2016-07-31 18:30] LABS: Basophils # (auto) 0 uL; Basophils % (auto) 0.2 % (0.0-2.0); Eosinophils # (auto) 0.1 uL; Eosinophils % (auto) 1.3 % (0.0-7.0); Hematocrit 33.7 % (36.0-46.0); Lymphocytes # (auto) 1.3 uL; Lymphocytes % (auto) 13.6 % (10.0-50.0); Mean Corpuscular Hemoglobin 28.1 pg (28.0-32.0); Mean Corpuscular Hgb Conc. 32.7 g/dL (32.0-36.0); Mean Platelet Volume 6.8 fL (7.4-10.4); Monocytes # (auto) 0.9 uL; Neutrophils # (auto) 7.3 uL; Neutrophils % (auto) 75.9 % (37.0-80.0); Platelet Count (auto) 318 10^3/uL (140-450); Red Cell Distribution Width 14.8 % (11.6-16.0); White Blood Cell 9.6 10^3/uL (4.4-10.8)
[2016-07-31 21:47] VITALS: BP 152/68
[2016-08-01] MEDS: LINEZOLID 600MG/300ML 300 ML IV SCH ×2 (01:31→15:00)
[2016-08-01] MEDS: SODIUM CHLORIDE 0.9% 1,000 ML IV SCH ×2 (01:35→18:15)
[2016-08-01 05:13] VITALS: BP 167/75
[2016-08-01] MEDS: hydrALAZINE HCL 20 MG/ML VL IV PRN ×2 (05:38→19:56)
[2016-08-01] MEDS: ACCU-CHEK COMFORT CURVE STRIP VI SCH ×3 (06:18→18:00)
[2016-08-01] MEDS: InsuLIN REG 1unit/0.01ml Soln (100units/ml) SC SCH ×4 (06:26→18:00)
[2016-08-01] MEDS: LEVOTHYROXINE SODIUM 100 MCG TAB PO SCH (06:27)
[2016-08-01] MEDS: IPRATROPIUM BROM 0.5 MG/2.5ML INH SOL NEB SCH ×4 (06:45→19:30)
[2016-08-01] MEDS: ALBUTEROL SULF 2.5 MG/0.5ML(0.5%) NEB SOLN NEB SCH ×4 (06:45→19:30)
[2016-08-01] MEDS: Boost Glucose Control 8 Ounces PO SCH ×3 (08:00→18:00)
[2016-08-01 09:00] VITALS: BP 175/71
[2016-08-01] MEDS: cefTRIAXone 1GM/50ML D5W 50 ML IV SCH (11:40)
[2016-08-01] MEDS: METOPROLOL TARTRATE 50 MG TAB PO SCH ×2 (11:41→21:58)
[2016-08-01] MEDS: LISINOPRIL 10 MG TAB PO SCH (11:41)
[2016-08-01] MEDS: PANTOPRAZOLE 40 MG TAB PO SCH (11:41)
[2016-08-01] MEDS: FUROSEMIDE 40 MG/4 ML VIAL IV SCH ×2 (11:41→14:00)
[2016-08-01 13:00] VITALS: BP 171/75
[2016-08-01 17:21] VITALS: BP 164/76
[2016-08-01 22:03] VITALS: BP 134/58
[2016-08-02] MEDS: InsuLIN REG 1unit/0.01ml Soln (100units/ml) SC SCH ×4 (01:09→18:00)
[2016-08-02] MEDS: LINEZOLID 600MG/300ML 300 ML IV SCH ×2 (01:30→14:41)
[2016-08-02] MEDS: ACCU-CHEK COMFORT CURVE STRIP VI SCH ×4 (05:52→18:00)
[2016-08-02] MEDS: IPRATROPIUM BROM 0.5 MG/2.5ML INH SOL NEB SCH ×4 (06:00→19:46)
[2016-08-02] MEDS: ALBUTEROL SULF 2.5 MG/0.5ML(0.5%) NEB SOLN NEB SCH ×4 (06:00→19:46)
[2016-08-02] MEDS: LEVOTHYROXINE SODIUM 100 MCG TAB PO SCH (06:35)
[2016-08-02] MEDS: Boost Glucose Control 8 Ounces PO SCH ×3 (08:00→18:00)
[2016-08-02 08:30] VITALS: BP 163/69
[2016-08-02] MEDS: FUROSEMIDE 40 MG/4 ML VIAL IV SCH ×2 (10:05→14:40)
[2016-08-02] MEDS: METOPROLOL TARTRATE 50 MG TAB PO SCH ×2 (10:05→21:42)
[2016-08-02] MEDS: PANTOPRAZOLE 40 MG TAB PO SCH (10:06)
[2016-08-02] MEDS: LISINOPRIL 10 MG TAB PO SCH (10:06)
[2016-08-02] MEDS: fentaNYL 50MCG/HR 50 MCG/HR PAT TD SCH (10:18)
[2016-08-02 12:30] VITALS: BP 136/67
[2016-08-02 17:17] VITALS: BP 152/65
[2016-08-02 22:00] VITALS: BP 141/74
[2016-08-03] MEDS: LINEZOLID 600MG/300ML 300 ML IV SCH ×2 (01:59→13:52)
[2016-08-03 05:00] VITALS: BP 191/74
[2016-08-03] MEDS: ACCU-CHEK COMFORT CURVE STRIP VI SCH ×4 (06:00→18:22)
[2016-08-03] MEDS: InsuLIN REG 1unit/0.01ml Soln (100units/ml) SC SCH ×4 (06:00→18:00)
[2016-08-03 06:30] VITALS: BP 163/75
[2016-08-03] MEDS: IPRATROPIUM BROM 0.5 MG/2.5ML INH SOL NEB SCH ×4 (07:10→18:42)
[2016-08-03] MEDS: LEVOTHYROXINE SODIUM 100 MCG TAB PO SCH (07:10)
[2016-08-03] MEDS: ALBUTEROL SULF 2.5 MG/0.5ML(0.5%) NEB SOLN NEB SCH ×4 (07:10→18:42)
[2016-08-03] MEDS: hydrALAZINE HCL 20 MG/ML VL IV PRN (07:37)
[2016-08-03] MEDS: Boost Glucose Control 8 Ounces PO SCH ×3 (08:00→18:22)
[2016-08-03 08:50] VITALS: BP 163/75
[2016-08-03] MEDS: FUROSEMIDE 40 MG/4 ML VIAL IV SCH ×2 (10:00→14:04)
[2016-08-03] MEDS: METOPROLOL TARTRATE 50 MG TAB PO SCH ×2 (10:25→21:45)
[2016-08-03] MEDS: PANTOPRAZOLE 40 MG TAB PO SCH (10:25)
[2016-08-03] MEDS: LISINOPRIL 10 MG TAB PO SCH (10:26)
[2016-08-03 12:30] VITALS: BP 127/72
[2016-08-03] MEDS: SODIUM CHLORIDE 0.9% 1,000 ML IV SCH ×2 (13:52→18:22)
[2016-08-03 15:09] LABS: BUN/Creatinine Ratio 20.9
[2016-08-03 15:12] LABS: Potassium 2.9 mmol/L (3.5-5.1)
[2016-08-03] MEDS ORDERED: POTASSIUM CHL 20 Meq TABLET PO ONE (18:30)
[2016-08-03] MEDS ORDERED: POTASSIUM CHL 10% (20 MEQ/15ML) ORAL SOLN PO ONE (19:25)
[2016-08-03 21:41] VITALS: BP 152/74
[2016-08-04] MEDS: SODIUM CHLORIDE 0.9% 1,000 ML IV SCH (00:40)
[2016-08-04] MEDS: LINEZOLID 600MG/300ML 300 ML IV SCH ×2 (01:40→13:20)
[2016-08-04 05:00] VITALS: BP 154/72
[2016-08-04] MEDS: InsuLIN REG 1unit/0.01ml Soln (100units/ml) SC SCH ×5 (06:04→23:53)
[2016-08-04] MEDS: ACCU-CHEK COMFORT CURVE STRIP VI SCH ×5 (06:04→23:54)
[2016-08-04] MEDS: LEVOTHYROXINE SODIUM 100 MCG TAB PO SCH (06:04)
[2016-08-04] MEDS: ALBUTEROL SULF 2.5 MG/0.5ML(0.5%) NEB SOLN NEB SCH ×4 (07:00→18:00)
[2016-08-04] MEDS: IPRATROPIUM BROM 0.5 MG/2.5ML INH SOL NEB SCH ×4 (07:00→18:00)
[2016-08-04 09:57] VITALS: BP 150/70
[2016-08-04] MEDS: LISINOPRIL 10 MG TAB PO SCH (12:14)
[2016-08-04] MEDS: METOPROLOL TARTRATE 50 MG TAB PO SCH ×2 (12:15→21:47)
[2016-08-04] MEDS: FUROSEMIDE 40 MG/4 ML VIAL IV SCH ×2 (12:15→13:28)
[2016-08-04] MEDS: PANTOPRAZOLE 40 MG TAB PO SCH (12:16)
[2016-08-04] MEDS: Boost Glucose Control 8 Ounces PO SCH ×3 (12:16→17:30)
[2016-08-04 13:00] VITALS: BP 145/72
[2016-08-04 16:30] VITALS: BP 158/70
[2016-08-04] MEDS: ASCORBIC ACID 500 MG TAB PO SCH (21:47)
[2016-08-04 22:00] VITALS: BP 137/60
[2016-08-05] MEDS: LINEZOLID 600MG/300ML 300 ML IV SCH ×2 (01:33→15:17)
[2016-08-05 04:19] VITALS: BP 137/60
[2016-08-05 05:00] VITALS: BP 162/70
[2016-08-05] MEDS: SODIUM CHLORIDE 0.9% 1,000 ML IV SCH ×2 (05:35→22:15)
[2016-08-05] MEDS: InsuLIN REG 1unit/0.01ml Soln (100units/ml) SC SCH ×4 (05:53→23:13)
[2016-08-05] MEDS: ACCU-CHEK COMFORT CURVE STRIP VI SCH ×4 (05:53→23:14)
[2016-08-05] MEDS: LEVOTHYROXINE SODIUM 100 MCG TAB PO SCH (06:06)
[2016-08-05] MEDS: ALBUTEROL SULF 2.5 MG/0.5ML(0.5%) NEB SOLN NEB SCH ×4 (07:11→19:22)
[2016-08-05] MEDS: IPRATROPIUM BROM 0.5 MG/2.5ML INH SOL NEB SCH ×4 (07:11→19:22)
[2016-08-05 08:58] VITALS: BP 159/94
[2016-08-05] MEDS: fentaNYL 50MCG/HR 50 MCG/HR PAT TD SCH (09:25)
[2016-08-05] MEDS: METOPROLOL TARTRATE 50 MG TAB PO SCH ×2 (09:25→21:48)
[2016-08-05] MEDS: LISINOPRIL 10 MG TAB PO SCH (09:26)
[2016-08-05] MEDS: ASCORBIC ACID 500 MG TAB PO SCH ×2 (09:27→21:48)
[2016-08-05] MEDS: FUROSEMIDE 40 MG/4 ML VIAL IV SCH ×2 (09:27→15:17)
[2016-08-05] MEDS: PANTOPRAZOLE 40 MG TAB PO SCH (09:27)
[2016-08-05] MEDS: MULTIPLE VITAMINS W/ MINERALS TAB PO SCH (09:27)
[2016-08-05] MEDS: Boost Glucose Control 8 Ounces PO SCH ×3 (09:28→18:18)
[2016-08-05] MEDS: hydrALAZINE HCL 20 MG/ML VL IV PRN ×2 (12:33→18:58)
[2016-08-05 13:00] VITALS: BP 156/74
[2016-08-05 15:46] LABS: BUN/Creatinine Ratio 17.9; Calcium 7.5 mg/dL (8.5-10.1)
[2016-08-05 15:57] LABS: Potassium 2.9 mmol/L (3.5-5.1)
[2016-08-05 16:27] VITALS: BP 170/73
[2016-08-05] MEDS: POTASSIUM CHL 10% (20 MEQ/15ML) ORAL SOLN PO SCH ×2 (18:18→21:47)
[2016-08-05 22:00] VITALS: BP 147/59
[2016-08-06] MEDS: LINEZOLID 600MG/300ML 300 ML IV SCH ×2 (01:31→14:42)
[2016-08-06] MEDS: hydrALAZINE HCL 20 MG/ML VL IV PRN (04:40)
[2016-08-06 05:00] VITALS: BP 197/86
[2016-08-06] MEDS: ACCU-CHEK COMFORT CURVE STRIP VI SCH ×3 (06:01→18:40)
[2016-08-06] MEDS: POTASSIUM CHL 10% (20 MEQ/15ML) ORAL SOLN PO SCH ×3 (06:01→22:34)
[2016-08-06] MEDS: LEVOTHYROXINE SODIUM 100 MCG TAB PO SCH (06:01)
[2016-08-06] MEDS: InsuLIN REG 1unit/0.01ml Soln (100units/ml) SC SCH ×3 (06:01→18:40)
[2016-08-06] MEDS: IPRATROPIUM BROM 0.5 MG/2.5ML INH SOL NEB SCH ×4 (06:17→19:23)
[2016-08-06] MEDS: ALBUTEROL SULF 2.5 MG/0.5ML(0.5%) NEB SOLN NEB SCH ×4 (06:17→19:23)
[2016-08-06 09:24] VITALS: BP 157/84
[2016-08-06] MEDS: FUROSEMIDE 40 MG/4 ML VIAL IV SCH ×2 (11:52→14:37)
[2016-08-06] MEDS: PANTOPRAZOLE 40 MG TAB PO SCH (11:59)
[2016-08-06] MEDS: METOPROLOL TARTRATE 50 MG TAB PO SCH ×2 (11:59→22:36)
[2016-08-06] MEDS: MULTIPLE VITAMINS W/ MINERALS TAB PO SCH (11:59)
[2016-08-06] MEDS: LISINOPRIL 10 MG TAB PO SCH (12:00)
[2016-08-06] MEDS: ASCORBIC ACID 500 MG TAB PO SCH ×2 (12:00→22:35)
[2016-08-06] MEDS: Boost Glucose Control 8 Ounces PO SCH ×3 (12:01→18:39)
[2016-08-06 13:00] VITALS: BP 140/78
[2016-08-06] MEDS: SODIUM CHLORIDE 0.9% 1,000 ML IV SCH (14:55)
[2016-08-06 17:00] VITALS: BP 146/68
[2016-08-06 22:19] VITALS: BP 148/74
[2016-08-06] MEDS: NYSTATIN TOPICAL POWDER 15GM TOP SCH (22:34)
[2016-08-07] MEDS: LINEZOLID 600MG/300ML 300 ML IV SCH ×2 (02:32→14:59)
[2016-08-07 04:48] VITALS: BP 169/70
[2016-08-07] MEDS: POTASSIUM CHL 10% (20 MEQ/15ML) ORAL SOLN PO SCH ×3 (05:49→21:12)
[2016-08-07] MEDS: LEVOTHYROXINE SODIUM 100 MCG TAB PO SCH (05:49)
[2016-08-07] MEDS: ACCU-CHEK COMFORT CURVE STRIP VI SCH ×5 (06:00→23:29)
[2016-08-07] MEDS: InsuLIN REG 1unit/0.01ml Soln (100units/ml) SC SCH ×5 (06:00→23:55)
[2016-08-07] MEDS: ALBUTEROL SULF 2.5 MG/0.5ML(0.5%) NEB SOLN NEB SCH ×4 (06:24→18:38)
[2016-08-07] MEDS: IPRATROPIUM BROM 0.5 MG/2.5ML INH SOL NEB SCH ×4 (06:24→18:38)
[2016-08-07] MEDS: SODIUM CHLORIDE 0.9% 1,000 ML IV SCH (07:35)
[2016-08-07 07:42] LABS: BUN/Creatinine Ratio 18.5; Calcium 6.5 mg/dL (8.5-10.1); Potassium 3.2 mmol/L (3.5-5.1)
[2016-08-07] MEDS: Boost Glucose Control 8 Ounces PO SCH ×3 (08:00→17:50)
[2016-08-07 09:01] VITALS: BP 183/75
[2016-08-07] MEDS: ASCORBIC ACID 500 MG TAB PO SCH ×2 (09:18→21:12)
[2016-08-07] MEDS: PANTOPRAZOLE 40 MG TAB PO SCH (09:19)
[2016-08-07] MEDS: MULTIPLE VITAMINS W/ MINERALS TAB PO SCH (09:19)
[2016-08-07] MEDS: METOPROLOL TARTRATE 50 MG TAB PO SCH ×2 (09:20→21:41)
[2016-08-07] MEDS: LISINOPRIL 10 MG TAB PO SCH (09:21)
[2016-08-07] MEDS: ENOXAPARIN SOD 40 MG/0.4 ML SYRINGE SC SCH (09:27)
[2016-08-07] MEDS: FUROSEMIDE 40 MG/4 ML VIAL IV SCH ×2 (09:29→14:57)
[2016-08-07] MEDS: NYSTATIN TOPICAL POWDER 15GM TOP SCH ×2 (10:00→21:40)
[2016-08-07] MEDS ORDERED: POTASSIUM CHL 20 Meq TABLET PO ONE (12:45)
[2016-08-07 12:56] VITALS: BP 155/77
[2016-08-07 16:34] VITALS: BP 174/80
[2016-08-07 22:00] VITALS: BP 137/67
[2016-08-08] MEDS: SODIUM CHLORIDE 0.9% 1,000 ML IV SCH ×2 (00:15→17:07)
[2016-08-08] MEDS ORDERED: ALBUTEROL SULF 2.5 MG/0.5ML(0.5%) NEB SOLN ONE (00:37)
[2016-08-08] MEDS ORDERED: ALBUTEROL SULF 2.5 MG/0.5ML(0.5%) NEB SOLN NEB PRN (00:45)
[2016-08-08] MEDS: LINEZOLID 600MG/300ML 300 ML IV SCH ×2 (01:14→13:57)
[2016-08-08 01:59] VITALS: BP 174/80
[2016-08-08 05:00] VITALS: BP 186/86
[2016-08-08] MEDS: ALBUTEROL SULF 2.5 MG/0.5ML(0.5%) NEB SOLN NEB SCH ×5 (05:57→22:19)
[2016-08-08] MEDS: IPRATROPIUM BROM 0.5 MG/2.5ML INH SOL NEB SCH ×5 (05:57→22:19)
[2016-08-08] MEDS: ACCU-CHEK COMFORT CURVE STRIP VI SCH ×4 (06:28→23:48)
[2016-08-08] MEDS: InsuLIN REG 1unit/0.01ml Soln (100units/ml) SC SCH ×4 (06:29→23:49)
[2016-08-08] MEDS: POTASSIUM CHL 10% (20 MEQ/15ML) ORAL SOLN PO SCH ×3 (06:30→21:36)
[2016-08-08] MEDS: LEVOTHYROXINE SODIUM 100 MCG TAB PO SCH (06:30)
[2016-08-08 07:05] LABS: BUN/Creatinine Ratio 17.4; Calcium 7.8 mg/dL (8.5-10.1); Potassium 4.4 mmol/L (3.5-5.1)
[2016-08-08] MEDS: Boost Glucose Control 8 Ounces PO SCH ×3 (08:00→18:16)
[2016-08-08] MEDS: hydrALAZINE HCL 20 MG/ML VL IV PRN ×3 (09:20→18:15)
[2016-08-08] MEDS: FUROSEMIDE 40 MG/4 ML VIAL IV SCH ×2 (09:35→13:58)
[2016-08-08] MEDS: PANTOPRAZOLE 40 MG TAB PO SCH (09:35)
[2016-08-08] MEDS: ASCORBIC ACID 500 MG TAB PO SCH ×2 (09:35→21:35)
[2016-08-08] MEDS: METOPROLOL TARTRATE 50 MG TAB PO SCH ×2 (09:36→21:36)
[2016-08-08] MEDS: LISINOPRIL 10 MG TAB PO SCH (09:36)
[2016-08-08] MEDS: MULTIPLE VITAMINS W/ MINERALS TAB PO SCH (09:36)
[2016-08-08] MEDS: fentaNYL 50MCG/HR 50 MCG/HR PAT TD SCH (09:37)
[2016-08-08] MEDS: NYSTATIN TOPICAL POWDER 15GM TOP SCH ×2 (10:00→21:37)
[2016-08-08] MEDS: ENOXAPARIN SOD 40 MG/0.4 ML SYRINGE SC SCH (10:49)
[2016-08-08 13:00] VITALS: BP 195/87
[2016-08-08 13:10] VITALS: BP 145/66
[2016-08-08] MEDS ORDERED: LISINOPRIL 10 MG TAB PO ONE (14:30)
[2016-08-08] MEDS: amLODIPine BESYLATE 5 MG TAB PO SCH (15:09)
[2016-08-08 17:00] VITALS: BP 196/84
[2016-08-08 22:00] VITALS: BP 158/69
[2016-08-09] MEDS: LINEZOLID 600MG/300ML 300 ML IV SCH ×2 (02:38→14:13)
[2016-08-09] MEDS: hydrALAZINE HCL 20 MG/ML VL IV PRN (04:57)
[2016-08-09 05:00] VITALS: BP 177/73
[2016-08-09] MEDS: LEVOTHYROXINE SODIUM 100 MCG TAB PO SCH (06:20)
[2016-08-09] MEDS: POTASSIUM CHL 10% (20 MEQ/15ML) ORAL SOLN PO SCH ×3 (06:21→21:48)
[2016-08-09] MEDS: ACCU-CHEK COMFORT CURVE STRIP VI SCH ×3 (06:21→19:15)
[2016-08-09] MEDS: InsuLIN REG 1unit/0.01ml Soln (100units/ml) SC SCH ×3 (06:32→19:15)
[2016-08-09] MEDS: IPRATROPIUM BROM 0.5 MG/2.5ML INH SOL NEB SCH ×4 (07:01→20:13)
[2016-08-09] MEDS: ALBUTEROL SULF 2.5 MG/0.5ML(0.5%) NEB SOLN NEB SCH ×4 (07:02→20:13)
[2016-08-09 09:00] VITALS: BP 131/84
[2016-08-09] MEDS: FUROSEMIDE 40 MG/4 ML VIAL IV SCH ×2 (10:00→14:13)
[2016-08-09] MEDS: ASCORBIC ACID 500 MG TAB PO SCH ×2 (10:00→21:48)
[2016-08-09] MEDS: PANTOPRAZOLE 40 MG TAB PO SCH (10:00)
[2016-08-09] MEDS: ENOXAPARIN SOD 40 MG/0.4 ML SYRINGE SC SCH (10:00)
[2016-08-09] MEDS: MULTIPLE VITAMINS W/ MINERALS TAB PO SCH (10:01)
[2016-08-09] MEDS: LISINOPRIL 10 MG TAB PO SCH (10:02)
[2016-08-09] MEDS: amLODIPine BESYLATE 5 MG TAB PO SCH (10:02)
[2016-08-09] MEDS: Boost Glucose Control 8 Ounces PO SCH ×3 (10:04→18:00)
[2016-08-09] MEDS: NYSTATIN TOPICAL POWDER 15GM TOP SCH ×2 (10:04→21:48)
[2016-08-09] MEDS: METOPROLOL TARTRATE 50 MG TAB PO SCH ×2 (10:04→21:47)
[2016-08-09] MEDS: SODIUM CHLORIDE 0.9% 1,000 ML IV SCH (10:05)
[2016-08-09 13:00] VITALS: BP 154/85
[2016-08-09 17:00] VITALS: BP 132/80
[2016-08-09 22:00] VITALS: BP 119/78
[2016-08-09 22:37] VITALS: BP 119/78
[2016-08-10] MEDS: LINEZOLID 600MG/300ML 300 ML IV SCH ×2 (02:00→14:16)
[2016-08-10] MEDS: SODIUM CHLORIDE 0.9% 1,000 ML IV SCH ×2 (03:19→18:40)
[2016-08-10 05:30] VITALS: BP 153/81
[2016-08-10] MEDS: ACCU-CHEK COMFORT CURVE STRIP VI SCH ×4 (06:00→17:31)
[2016-08-10] MEDS: InsuLIN REG 1unit/0.01ml Soln (100units/ml) SC SCH ×4 (06:00→18:15)
[2016-08-10] MEDS: ALBUTEROL SULF 2.5 MG/0.5ML(0.5%) NEB SOLN NEB SCH ×4 (06:24→19:14)
[2016-08-10] MEDS: IPRATROPIUM BROM 0.5 MG/2.5ML INH SOL NEB SCH ×4 (06:24→19:14)
[2016-08-10] MEDS: LEVOTHYROXINE SODIUM 100 MCG TAB PO SCH (06:49)
[2016-08-10] MEDS: POTASSIUM CHL 10% (20 MEQ/15ML) ORAL SOLN PO SCH ×3 (06:49→21:57)
[2016-08-10 08:00] VITALS: BP 135/54
[2016-08-10] MEDS: Boost Glucose Control 8 Ounces PO SCH ×3 (08:00→17:31)
[2016-08-10] MEDS: MULTIPLE VITAMINS W/ MINERALS TAB PO SCH (09:53)
[2016-08-10] MEDS: METOPROLOL TARTRATE 50 MG TAB PO SCH ×2 (09:54→21:58)
[2016-08-10] MEDS: PANTOPRAZOLE 40 MG TAB PO SCH (09:55)
[2016-08-10] MEDS: amLODIPine BESYLATE 5 MG TAB PO SCH (09:55)
[2016-08-10] MEDS: ASCORBIC ACID 500 MG TAB PO SCH ×2 (09:55→21:58)
[2016-08-10] MEDS: ENOXAPARIN SOD 40 MG/0.4 ML SYRINGE SC SCH (09:56)
[2016-08-10] MEDS: FUROSEMIDE 40 MG/4 ML VIAL IV SCH ×2 (09:56→14:33)
[2016-08-10] MEDS: LISINOPRIL 10 MG TAB PO SCH (09:56)
[2016-08-10] MEDS: NYSTATIN TOPICAL POWDER 15GM TOP SCH ×2 (09:56→21:58)
[2016-08-10 13:00] VITALS: BP 146/59
[2016-08-10 17:00] VITALS: BP 129/59
[2016-08-10 21:52] VITALS: BP 124/63
[2016-08-11] MEDS: InsuLIN REG 1unit/0.01ml Soln (100units/ml) SC SCH ×5 (00:10→23:54)
[2016-08-11] MEDS: ACCU-CHEK COMFORT CURVE STRIP VI SCH ×5 (00:10→23:51)
[2016-08-11] MEDS: LINEZOLID 600MG/300ML 300 ML IV SCH ×2 (01:57→14:00)
[2016-08-11 05:20] VITALS: BP 147/77
[2016-08-11] MEDS: LEVOTHYROXINE SODIUM 100 MCG TAB PO SCH (06:44)
[2016-08-11] MEDS: POTASSIUM CHL 10% (20 MEQ/15ML) ORAL SOLN PO SCH ×3 (06:44→22:11)
[2016-08-11] MEDS: IPRATROPIUM BROM 0.5 MG/2.5ML INH SOL NEB SCH ×4 (06:45→18:34)
[2016-08-11] MEDS: ALBUTEROL SULF 2.5 MG/0.5ML(0.5%) NEB SOLN NEB SCH ×4 (06:45→18:34)
[2016-08-11] MEDS: Boost Glucose Control 8 Ounces PO SCH ×3 (08:21→17:00)
[2016-08-11 09:00] VITALS: BP 121/71
[2016-08-11] MEDS: ASCORBIC ACID 500 MG TAB PO SCH ×2 (09:54→22:12)
[2016-08-11] MEDS: LISINOPRIL 10 MG TAB PO SCH (09:55)
[2016-08-11] MEDS: amLODIPine BESYLATE 5 MG TAB PO SCH (09:55)
[2016-08-11] MEDS: METOPROLOL TARTRATE 50 MG TAB PO SCH ×2 (09:56→22:12)
[2016-08-11] MEDS: FUROSEMIDE 40 MG/4 ML VIAL IV SCH ×2 (10:56→14:00)
[2016-08-11] MEDS: PANTOPRAZOLE 40 MG TAB PO SCH (10:56)
[2016-08-11] MEDS: MULTIPLE VITAMINS W/ MINERALS TAB PO SCH (10:56)
[2016-08-11] MEDS: NYSTATIN TOPICAL POWDER 15GM TOP SCH ×2 (10:57→22:12)
[2016-08-11] MEDS: ENOXAPARIN SOD 40 MG/0.4 ML SYRINGE SC SCH (10:57)
[2016-08-11] MEDS: fentaNYL 50MCG/HR 50 MCG/HR PAT TD SCH (10:57)
[2016-08-11] MEDS: SODIUM CHLORIDE 0.9% 1,000 ML IV SCH (11:26)
[2016-08-11 13:00] VITALS: BP 174/65
[2016-08-11] MEDS: hydrALAZINE HCL 20 MG/ML VL IV PRN (15:36)
[2016-08-11 17:00] VITALS: BP 127/55
[2016-08-11] MEDS: SPIRONOLACTONE 25 MG TAB PO SCH (17:00)
[2016-08-11 17:59] LABS: B-Type Natriuretic Peptide 567.7 pg/mL (0-100); Temperature: 23.3 C (20.0-25.0)
[2016-08-11 22:00] VITALS: BP 119/60
[2016-08-12] MEDS: LINEZOLID 600MG/300ML 300 ML IV SCH ×2 (02:10→14:00)
[2016-08-12] MEDS: SODIUM CHLORIDE 0.9% 1,000 ML IV SCH ×2 (04:15→20:55)
[2016-08-12 05:30] VITALS: BP 141/64
[2016-08-12] MEDS: InsuLIN REG 1unit/0.01ml Soln (100units/ml) SC SCH ×3 (06:00→18:00)
[2016-08-12] MEDS: ALBUTEROL SULF 2.5 MG/0.5ML(0.5%) NEB SOLN NEB SCH ×5 (06:15→22:24)
[2016-08-12] MEDS: IPRATROPIUM BROM 0.5 MG/2.5ML INH SOL NEB SCH ×5 (06:15→22:24)
[2016-08-12] MEDS: ACCU-CHEK COMFORT CURVE STRIP VI SCH ×3 (06:16→17:52)
[2016-08-12] MEDS: POTASSIUM CHL 10% (20 MEQ/15ML) ORAL SOLN PO SCH ×2 (06:56→14:00)
[2016-08-12] MEDS: SPIRONOLACTONE 25 MG TAB PO SCH ×2 (06:56→17:52)
[2016-08-12] MEDS: LEVOTHYROXINE SODIUM 100 MCG TAB PO SCH (06:56)
[2016-08-12] MEDS: Boost Glucose Control 8 Ounces PO SCH ×3 (08:59→17:52)
[2016-08-12 09:00] VITALS: BP 133/61
[2016-08-12] MEDS: NYSTATIN TOPICAL POWDER 15GM TOP SCH ×2 (10:24→21:59)
[2016-08-12] MEDS: ENOXAPARIN SOD 40 MG/0.4 ML SYRINGE SC SCH (10:24)
[2016-08-12] MEDS: ASCORBIC ACID 500 MG TAB PO SCH ×2 (10:25→21:59)
[2016-08-12] MEDS: MULTIPLE VITAMINS W/ MINERALS TAB PO SCH (10:25)
[2016-08-12] MEDS: PANTOPRAZOLE 40 MG TAB PO SCH (10:25)
[2016-08-12] MEDS: FUROSEMIDE 40 MG/4 ML VIAL IV SCH ×2 (10:26→14:00)
[2016-08-12] MEDS: amLODIPine BESYLATE 5 MG TAB PO SCH (10:27)
[2016-08-12] MEDS: METOPROLOL TARTRATE 50 MG TAB PO SCH ×2 (10:27→21:59)
[2016-08-12] MEDS: LISINOPRIL 10 MG TAB PO SCH (10:28)
[2016-08-12 13:34] VITALS: BP 141/74
[2016-08-12 13:39] LABS: BUN/Creatinine Ratio 19.6; Calcium 8.6 mg/dL (8.5-10.1)
[2016-08-12 13:45] LABS: Potassium 5.8 mmol/L (3.5-5.1)
[2016-08-12 17:00] VITALS: BP 132/62
[2016-08-12 22:00] VITALS: BP 141/97
[2016-08-12] MEDS ORDERED: POTASSIUM CHL 10% (20 MEQ/15ML) ORAL SOLN PO SCH (22:00)
[2016-08-13] MEDS: ACCU-CHEK COMFORT CURVE STRIP VI SCH ×2 (00:02→05:26)
[2016-08-13] MEDS: LINEZOLID 600MG/300ML 300 ML IV SCH (01:39)
[2016-08-13 05:00] VITALS: BP 153/105
[2016-08-13] MEDS: InsuLIN REG 1unit/0.01ml Soln (100units/ml) SC SCH ×2 (05:26)
[2016-08-13] MEDS: LEVOTHYROXINE SODIUM 100 MCG TAB PO SCH (06:15)
[2016-08-13] MEDS: ALBUTEROL SULF 2.5 MG/0.5ML(0.5%) NEB SOLN NEB SCH ×2 (06:39→10:00)
[2016-08-13] MEDS: IPRATROPIUM BROM 0.5 MG/2.5ML INH SOL NEB SCH ×2 (06:39→10:00)
[2016-08-13 08:30] VITALS: BP 146/82
[2016-08-13] MEDS ORDERED: DEXTROSE (50%) 50ML SYRG IV ONE (08:45)
[2016-08-13] MEDS ORDERED: InsuLIN REG 1unit/0.01ml Soln (100units/ml) IV ONE (08:45)
[2016-08-13] MEDS ORDERED: SODIUM POLYSTYRENE SULF 15GM/60ML SUSP PO SCH (10:00)
== END 2016-08-13 09:50 | disposition expired | DRG 870 ==
LOC: ER 08:35 → EDBD 08:35 → TELE 08:36 → ICU WEST 07-08 05:55 → TELE-WESTW 07-28 11:16
PROVIDERS: ADMIT Internal Medicine; ATTEND Internal Medicine Pulmonary Disease
PROC: 5A09357 Assistance with Respiratory Ventilation, Less than 24 Consecutive Hours, Continuous Positive Airway Pressure (ICD-10-PCS; 2016-07-06)
PROC: 02HV33Z Insertion of Infusion Device into Superior Vena Cava, Percutaneous Approach (ICD-10-PCS; 2016-07-06)
PROC: 5A1955Z Respiratory Ventilation, Greater than 96 Consecutive Hours (ICD-10-PCS; principal; 2016-07-08)
PROC: 0BH17EZ Insertion of Endotracheal Airway into Trachea, Via Natural or Artificial Opening (ICD-10-PCS; 2016-07-08)
PROC: 0BB68ZX Excision of Right Lower Lobe Bronchus, Via Natural or Artificial Opening Endoscopic, Diagnostic (ICD-10-PCS; 2016-07-22)
PROC: 0BB58ZX Excision of Right Middle Lobe Bronchus, Via Natural or Artificial Opening Endoscopic, Diagnostic (ICD-10-PCS; 2016-07-22)
DX: A41.02 Sepsis due to Methicillin resistant Staphylococcus aureus (principal); J18.9 Pneumonia, unspecified organism; R65.21 Severe sepsis with septic shock; G93.40 Encephalopathy, unspecified; N17.0 Acute kidney failure with tubular necrosis; J15.212 Pneumonia due to Methicillin resistant Staphylococcus aureus; E13.10 Other specified diabetes mellitus with ketoacidosis without coma; G93.41 Metabolic encephalopathy; J96.21 Acute and chronic respiratory failure with hypoxia; J96.22 Acute and chronic respiratory failure with hypercapnia; I50.33 Acute on chronic diastolic (congestive) heart failure; L89.153 Pressure ulcer of sacral region, stage 3; I13.0 Hypertensive heart and chronic kidney disease with heart failure and stage 1 through stage 4 chronic kidney disease, or unspecified chronic kidney disease; I48.1 Persistent atrial fibrillation; N18.4 Chronic kidney disease, stage 4 (severe); Z99.11 Dependence on respirator [ventilator] status; G93.1 Anoxic brain damage, not elsewhere classified; J44.0 Chronic obstructive pulmonary disease with (acute) lower respiratory infection; E03.9 Hypothyroidism, unspecified; E11.21 Type 2 diabetes mellitus with diabetic nephropathy; E11.65 Type 2 diabetes mellitus with hyperglycemia; E78.5 Hyperlipidemia, unspecified; E83.41 Hypermagnesemia; E87.5 Hyperkalemia; K21.9 Gastro-esophageal reflux disease without esophagitis; M54.31 Sciatica, right side; Z80.0 Family history of malignant neoplasm of digestive organs; Z82.49 Family history of ischemic heart disease and other diseases of the circulatory system; F41.9 Anxiety disorder, unspecified; I48.91 Unspecified atrial fibrillation; Z87.440 Personal history of urinary (tract) infections; N28.1 Cyst of kidney, acquired; E11.22 Type 2 diabetes mellitus with diabetic chronic kidney disease; D64.9 Anemia, unspecified; Z82.3 Family history of stroke; Z83.3 Family history of diabetes mellitus; F32.9 Major depressive disorder, single episode, unspecified; G89.4 Chronic pain syndrome; D69.6 Thrombocytopenia, unspecified; E87.6 Hypokalemia; I48.0 Paroxysmal atrial fibrillation; Z66 Do not resuscitate; Z83.49 Family history of other endocrine, nutritional and metabolic diseases; B96.20 Unspecified Escherichia coli [E. coli] as the cause of diseases classified elsewhere; L98.499 Non-pressure chronic ulcer of skin of other sites with unspecified severity
CPT/HCPCS: 31500; 31624; 31625; 36415; 36569; 36600; 51702; 70450; 71010; 71250; 74176; 76775; 80048; 80053; 80061; 80202; 81001; 82270; 82306; 82570; 82805; 82962; 83036; 83605; 83735; 83880; 83930; 83970; 84100; 84132; 84156; 84300; 84443; 84484; 85007; 85014; 85018; 85025; 85027; 85379; 85610; 85730; 86850; 86900; 86901; 86920; 87040; 87070; 87077; 87081; 87086; 87147; 87186; 87205; 87400; 87493; 92610; 93005; 93306; 93970; 94002; 94003; 94640; 95819; 96365; 96366; 97001; 97110; 97116; 97530; 99291; C9113; G9035; J0171; J0330; J0696; J1815; J2250; J2405; J2543; J2704; J3010; J3480; J3490; J7060